=== PATIENT | female | born 1940 | race Caucasian/White ===

== ENCOUNTER 2017-03-31 15:47 | Observation (INO) | payer MEDICARE ==
[~2017-03-31] VITALS: Ht 165.1 cm; Wt 75.0 kg
[~2017-03-31 15:47] MED LIST: DEXI60CA3 PO; FISH100020 PO; LOVA20TA PO; OSTETAB PO; OXYB5TAB PO; PROB1TAB PO; TAB-TAB PO; VITA10002 PO; VITA100T55 PO; VITA400C36 PO
[2017-03-31 15:49] VITALS: BP 163/88; PULSE 122; RESP 18; TEMP 98.2; O2SAT 95
--- NOTE | 2017-03-31 15:55 | PD ---
Physical Exam Date Seen by Provider: Mar 31, 2017 Time Seen by Provider: 15:53 Narrative 76 YOWF C/O A.FIB. FEELING SOB, DIAPHORESIS, AND WEAKNESS VS REVIEWED WAITING FOR BED PLACEMENT Data Data Last Documented VS Vital Signs Date Time Temp Pulse Resp B/P Pulse Ox O2 Delivery O2 Flow Rate FiO2 03/31/17 15:49 98.2 122 18 163/88 95 MDM Supervised Visit with DUTCH: Ivan Marquez Mar 31, 2017 15:55
--- NOTE | 2017-03-31 16:23 | PD ---
HPI Chief Complaint: Cardiac Complaint Time Seen by Provider: 16:20 Travel History International Travel<30 days: No Contact w/Intl Traveler<30days: No Traveled to known affect area: No History of Present Illness HPI Patient drove to the emergency department from her primary care doctor's office after refusing ambulance transport for new onset A. fib. Patient's states that when she awoke she felt weak and a little short of breath. Patient reports being a little diaphoretic and saw her primary care doctor today was found to be in A. fib and sent to the emergency department. Patient states she's had some similar happen to her in the past where she felt weak and had a near- syncopal episode, but was never evaluated. Patient denies any cardiac history or being on any blood thinners. Patient denies any chest pain with this, nausea , vomiting, palpitations, back pain, headache, numbness or tingling anywhere, nausea, or vomiting. PFSH Past Medical History Cancer: No Cardiovascular Problems: No Diabetes: No Endocrine: No Genitourinary: Yes (FREQUENT URINATION) Hepatitis: No Hiatal Hernia: No Immune Disorder: No Musculoskeletal: No Neurologic: No Psychiatric: No Reproductive: No Respiratory: No Thyroid Disease: No ?: Not Past Surgical History Abdominal Surgery: No AICD: No Body Medical Devices: N/A Cardiac Surgery: No Ear Surgery: No Endocrine Surgery: No Eye Surgery: No Genitourinary Surgery: No Gynecologic Surgery: No Joint Replacement: No Oral Surgery: No Pacemaker: No Thoracic Surgery: No Social History Tobacco Use: No Substance Use: No Allergies-Medications (Allergen,Severity, Reaction): Coded Allergies: cashew nut (Unverified Allergy, Intermediate, RASH, 03/29/17) crab (Unverified Allergy, Intermediate, RASH, 03/29/17) egg (Unverified Allergy, Intermediate, RASH, 03/29/17) milk (Unverified Allergy, Intermediate, ?RASH. STILL DRINKS MILK, 03/29/17) shellfish derived (Unverified Allergy, Intermediate, RASH, 03/29/17) Reported Meds & Prescriptions Reported Meds & Active Scripts Active Reported Probiotic (Lactobacillus Combo No.10) 1 Each Capsule Ditropan (Oxybutynin Chloride) 5 Mg Tab 5 Mg PO Q8HR Fish Oil ([place]-3 Fatty Acids) 1,000 Mg Cap Folivane-Plus (Mult-Vit/Iron-Folic Acid) 125-1 mg Cap Osteo Bi-Flex Regular Strength (Glucosamine-Chondroitin) 250-200 Tab Lovastatin 20 Mg Tab 20 Mg PO DAILY Dexilant (Dexlansoprazole) 60 Mg Cap. B-12 (Cyanocobalamin) 1,000 Mcg Subl 1,000 Mcg SL DAILY Review of Systems Except as stated in HPI: all other systems reviewed are Neg Physical Exam Narrative GENERAL: Well-developed, overly nourished, in no acute distress, and non-ill appearing. SKIN: Focused skin assessment warm and dry. HEAD: Atraumatic. Normocephalic. EYES: Pupils equal and round. EOMI. No scleral icterus. No injection or drainage. ENT: No nasal bleeding or discharge. Mucous membranes pink and moist. NECK: Trachea midline. No JVD. Supple. No nuclear rigidity. CARDIOVASCULAR: Irregular rate and rhythm. No murmur appreciated. RESPIRATORY: No accessory muscle use. No respiratory distress. Decreased breath sounds throughout. Breath sounds equal bilaterally. GASTROINTESTINAL: Abdomen soft, non-tender, nondistended, and no guarding. Hepatic and splenic margins not palpable. Normal bowel sounds 4. No pulsatile mass. MUSCULOSKELETAL: No obvious deformities. No clubbing. No cyanosis. No edema. Full range of motion. NEUROLOGICAL: Awake and alert. No obvious cranial nerve deficits. Motor grossly within normal limits. Normal speech. PSYCHIATRIC: Appropriate mood and affect; insight and judgment normal. Data Data Last Documented VS Vital Signs Date Time Temp Pulse Resp B/P Pulse Ox O2 Delivery O2 Flow Rate FiO2 03/31/17 16:27 95 Room Air 03/31/17 15:49 98.2 122 18 163/88 Orders Electrocardiogram (03/31/17 15:56) Basic Metabolic Panel (Bmp) (03/31/17 16:18) Ckmb (Isoenzyme) Profile (03/31/17 16:18) Complete Blood Count With Diff (03/31/17 16:18) Magnesium (Mg) (03/31/17 16:18) Prothrombin Time / Inr (Pt) (03/31/17 16:18) Act Partial Throm Time (Ptt) (03/31/17 16:18) Troponin I (03/31/17 16:18) Chest, Single Ap (03/31/17 16:18) Ecg Monitoring (03/31/17 16:18) Bilateral Bp Monitoring (03/31/17 16:18) Iv Access Insert/Monitor (03/31/17 16:18) Oximetry (03/31/17 16:18) Oxygen Administration (03/31/17 16:18) Aspirin Chew (Aspirin Chew) (03/31/17 16:30) Sodium Chloride 0.9% Flush (Ns Flush) (03/31/17 16:30) Diltiazem Inj (Cardizem Inj) (03/31/17 16:30) Diltiazem Inj (Cardizem Inj) (03/31/17 16:30) Diltiazem Inj (Cardizem Inj) (03/31/17 17:45) Labs Laboratory Tests Test 03/31/17 16:30 White Blood Count 7.0 TH/MM3 Red Blood Count 4.77 MIL/MM3 Hemoglobin 14.9 GM/DL Hematocrit 44.3 % Mean Corpuscular Volume 92.8 FL Mean Corpuscular Hemoglobin 31.3 PG Mean Corpuscular Hemoglobin 33.7 % Concent Red Cell Distribution Width 14.9 % Platelet Count 326 TH/MM3 Mean Platelet Volume 7.6 FL Neutrophils (%) (Auto) 65.5 % Lymphocytes (%) (Auto) 13.4 % Monocytes (%) (Auto) 11.0 % Eosinophils (%) (Auto) 9.4 % Basophils (%) (Auto) 0.7 % Neutrophils # (Auto) 4.6 TH/MM3 Lymphocytes # (Auto) 0.9 TH/MM3 Monocytes # (Auto) 0.8 TH/MM3 Eosinophils # (Auto) 0.7 TH/MM3 Basophils # (Auto) 0.0 TH/MM3 CBC Comment DIFF FINAL Differential Comment Prothrombin Time 11.7 SEC Prothromb Time International 1.1 RATIO Ratio Activated Partial 29.0 SEC Thromboplast Time Sodium Level 141 MEQ/L Potassium Level 4.1 MEQ/L Chloride Level 106 MEQ/L Carbon Dioxide Level 26.3 MEQ/L Anion Gap 9 MEQ/L Blood Urea Nitrogen 25 MG/DL Creatinine 1.19 MG/DL Estimat Glomerular Filtration 44 ML/MIN Rate Random Glucose 140 MG/DL Calcium Level 9.7 MG/DL Magnesium Level 2.3 MG/DL Total Creatine Kinase 74 U/L Troponin I LESS THAN 0.02 NG/ML MDM Medical Decision Making Medical Screen Exam Complete: Yes Emergency Medical Condition: Yes Interpretation(s) EKG reviewed by Dr. Moore shows atrial fibrillation with RVR. Ventricular rate of 142. No STEMI. Chest x-ray read by radiology shows: 1. Masslike opacity projected over the right upper lobe which could represent a mass or possible infiltrate. This could be further evaluated with CT. 2. Left lower lobe opacity of concern for pneumonia. Differential Diagnosis A. fib, acute coronary syndrome, pneumonia, electrolyte abnormality, other Narrative Course Patient seen and examined. IV was established. Patient was placed on a media monitor. Initial laboratory and radiological studies were ordered. Patient was given aspirin. After EKG was performed patient was given Cardizem, which improved her heart rate. Discussed all findings and plan care of patient , who is agreeable for admission. Discussed lung opacities noted on chest x- ray with patient. All questions were answered. Discussed patient with Dr. Moore , who saw and evaluated the patient and is in agreement with plan of care and disposition. Discussed patient with hospitalist who is agreeable to admit the patient. Physician Communication Physician Communication [id number] Todd, who is agreeable to admit the patient and requests starting patient on heart healthy diet and out of bed with assist. Diagnosis Primary Impression: New onset a-fib Additional Impression: Opacity of lung on imaging study Admitting Information Admitting Physician Requests: Admit Condition: Stable Robe Antoine Mar 31, 2017 16:23
[2017-03-31] MEDS ORDERED: DILTIAZEM HCL 25 MG/5 ML VIAL IV PUSH ONE (16:30)
[2017-03-31] MEDS ORDERED: ASPIRIN 81 MG CHEW TAB PO ONE (16:30)
[2017-03-31] MEDS ORDERED: SODIUM CHLORIDE 0.9% FLUSH 10 ML FLUSH IVF PRN (16:30)
[2017-03-31] MEDS ORDERED: DILTIAZEM INJ 125 MG in SODIUM CHLORIDE 0.9% INJ 100 ML IV SCH (16:30)
--- NOTE | 2017-03-31 16:52 | RADRPT ---
EXAM DATE/TIME: 03/31/2017 16:31 [facility] COMPARISON: No previous studies available for comparison. INDICATIONS : Chest pain MEDICAL HISTORY : A-fib SURGICAL HISTORY : None. ENCOUNTER: Initial ACUITY: 1 day PAIN SCORE: 08/24 LOCATION: chest FINDINGS: A single AP portable erect view of the chest was obtained and demonstrates a focal abnormal opacity p rojected over the right lung apex measuring up to approximately 2.5 x 1.9 cm. There is abnormal opaci ty in the left lung base with partial obscuration of the left hemidiaphragm. There is no effusion. Th e heart size is within normal limits with no perihilar edema. The bony thorax is unremarkable. CONCLUSION: 1. Masslike opacity projected over the right upper lobe which could represent a mass or possible infi ltrate. His could be further evaluated with CT. 2. Left lower lobe opacity of concern for pneumonia. George Reyez MD on March 31, 2017 at 16:49 Board Certified Radiologist. This report was verified electronically.
--- NOTE | 2017-03-31 17:16 | PD ---
Data Data Last Documented VS Vital Signs Date Time Temp Pulse Resp B/P Pulse Ox O2 Delivery O2 Flow Rate FiO2 03/31/17 16:27 95 Room Air 03/31/17 15:49 98.2 122 18 163/88 Orders Electrocardiogram (03/31/17 15:56) Basic Metabolic Panel (Bmp) (03/31/17 16:18) Ckmb (Isoenzyme) Profile (03/31/17 16:18) Complete Blood Count With Diff (03/31/17 16:18) Magnesium (Mg) (03/31/17 16:18) Prothrombin Time / Inr (Pt) (03/31/17 16:18) Act Partial Throm Time (Ptt) (03/31/17 16:18) Troponin I (03/31/17 16:18) Chest, Single Ap (03/31/17 16:18) Ecg Monitoring (03/31/17 16:18) Bilateral Bp Monitoring (03/31/17 16:18) Iv Access Insert/Monitor (03/31/17 16:18) Oximetry (03/31/17 16:18) Oxygen Administration (03/31/17 16:18) Aspirin Chew (Aspirin Chew) (03/31/17 16:30) Sodium Chloride 0.9% Flush (Ns Flush) (03/31/17 16:30) Diltiazem Inj (Cardizem Inj) (03/31/17 16:30) Diltiazem Inj (Cardizem Inj) (03/31/17 16:30) Diltiazem Inj (Cardizem Inj) (03/31/17 17:45) Admit Order (Ed Use Only) (03/31/17 18:13) Diet Heart Healthy (03/31/17 Dinner) Activity Oob With Assistance (03/31/17 18:13) Labs Laboratory Tests Test 03/31/17 16:30 White Blood Count 7.0 TH/MM3 Red Blood Count 4.77 MIL/MM3 Hemoglobin 14.9 GM/DL Hematocrit 44.3 % Mean Corpuscular Volume 92.8 FL Mean Corpuscular Hemoglobin 31.3 PG Mean Corpuscular Hemoglobin 33.7 % Concent Red Cell Distribution Width 14.9 % Platelet Count 326 TH/MM3 Mean Platelet Volume 7.6 FL Neutrophils (%) (Auto) 65.5 % Lymphocytes (%) (Auto) 13.4 % Monocytes (%) (Auto) 11.0 % Eosinophils (%) (Auto) 9.4 % Basophils (%) (Auto) 0.7 % Neutrophils # (Auto) 4.6 TH/MM3 Lymphocytes # (Auto) 0.9 TH/MM3 Monocytes # (Auto) 0.8 TH/MM3 Eosinophils # (Auto) 0.7 TH/MM3 Basophils # (Auto) 0.0 TH/MM3 CBC Comment DIFF FINAL Differential Comment Prothrombin Time 11.7 SEC Prothromb Time International 1.1 RATIO Ratio Activated Partial 29.0 SEC Thromboplast Time Sodium Level 141 MEQ/L Potassium Level 4.1 MEQ/L Chloride Level 106 MEQ/L Carbon Dioxide Level 26.3 MEQ/L Anion Gap 9 MEQ/L Blood Urea Nitrogen 25 MG/DL Creatinine 1.19 MG/DL Estimat Glomerular Filtration 44 ML/MIN Rate Random Glucose 140 MG/DL Calcium Level 9.7 MG/DL Magnesium Level 2.3 MG/DL Total Creatine Kinase 74 U/L Troponin I LESS THAN 0.02 NG/ML MDM Supervised Visit with DUTCH: Yes Narrative Course I, Dr. Moore, have reviewed the advance practice practitioner's documentation and am in agreement, met with the patient face to face, made the diagnosis, and the medical decision making was done by me. *My assessment and Findings: Patient seen and examined by me in addition to Karan Antoine PA-C. Patient presents with new onset atrial fibrillation with RVR. She endorses several presyncopal type events in the past few weeks. She states that her blood pressures been low heart rate and high. She was controlled with multiple doses of Cardizem here in the emergency department. Hemodynamically stable. She will be admitted to the hospital further workup for new onset atrial fibrillation. Diagnosis Primary Impression: New onset a-fib Additional Impression: Opacity of lung on imaging study Admitting Information Admitting Physician Requests: Admit Condition: Stable Breezy Moore MD Mar 31, 2017 17:16
[2017-03-31 17:24] LABS: AUTOMATED NEUTROPHIL # 4.6 TH/MM3 (1.8-7.7); BASOPHIL % 0.7 % (0.0-2.0); EOSINOPHIL # 0.7 TH/MM3 (0-0.4); EOSINOPHIL % 9.4 % (0.0-4.0); HEMATOCRIT 44.3 % (35.0-46.0); HEMO FLAGS DIFF FINAL; LYMPH % 13.4 % (9.0-44.0); LYMPHOCYTE # 0.9 TH/MM3 (1.0-4.8); MEAN CELL VOLUME 92.8 FL (80.0-100.0); MEAN CORPUSCULAR HEMOGLOBIN 31.3 PG (27.0-34.0); MEAN CORPUSCULAR HGB CONC 33.7 % (32.0-36.0); NEUT % 65.5 % (16.0-70.0); PLATELET COUNT 326 TH/MM3 (150-450); RED BLOOD COUNT 4.77 MIL/MM3 (4.00-5.30); RED CELL DISTRIBUTION WIDTH 14.9 % (11.6-17.2)
[2017-03-31 17:34] LABS: INTERNATIONAL NORMALIZED RATIO 1.1 RATIO; PROTHROMBIN TIME - PATIENT 11.7 SEC (9.8-11.6)
[2017-03-31 17:45] LABS: ANION GAP 9 MEQ/L (5-15); BICARBONATE 26.3 MEQ/L (21.0-32.0); BLOOD UREA NITROGEN 25 MG/DL (7-18); CHLORIDE 106 MEQ/L (98-107); GLOMERULAR FILTRATION RATE 44 ML/MIN (>89); MAGNESIUM 2.3 MG/DL (1.5-2.5); POTASSIUM 4.1 MEQ/L (3.5-5.1); SODIUM (NA) 141 MEQ/L (136-145)
[2017-03-31] MEDS ORDERED: DILTIAZEM HCL 50 MG/10 ML VIAL IV PUSH ONE (17:45)
[2017-03-31] MEDS ORDERED: CYAN100025 SL (17:52)
[2017-03-31] MEDS ORDERED: OXYB5TAB10 PO (17:52)
[2017-03-31] MEDS ORDERED: LACT1CAP18 (17:52)
[2017-03-31] MEDS ORDERED: DEXI60CA2 (17:52)
[2017-03-31] MEDS ORDERED: OSTETAB3 (17:52)
[2017-03-31] MEDS ORDERED: FISH1000 (17:52)
[2017-03-31] MEDS ORDERED: LOVA20TA PO (17:52)
[2017-03-31] MEDS ORDERED: FOLICAP (17:52)
[2017-03-31 17:56] LABS: CREATINE KINASE 74 U/L (26-192)
[2017-03-31] MEDS ORDERED: LACTULOSE SYRUP 20 GM/30 ML CUP PO PRN (22:15)
[2017-03-31] MEDS ORDERED: ONDANSETRON HCL 4 MG/2 ML VIAL IVP PRN (22:15)
[2017-03-31] MEDS ORDERED: SODIUM CHLORIDE 0.9% FLUSH 10 ML FLUSH IV FLUSH PRN (22:15)
[2017-03-31] MEDS ORDERED: SENNOSIDES 8.6 MG TAB PO PRN (22:15)
[2017-03-31] MEDS ORDERED: ACETAMINOPHEN 325 MG TAB PO PRN (22:15)
[2017-03-31] MEDS ORDERED: NALOXONE HCL 0.4 MG/ML AMP IV PRN (22:15)
[2017-03-31] MEDS ORDERED: BISACODYL 10 MG SUPP RECTAL PRN (22:15)
[2017-03-31] MEDS ORDERED: MAGNESIUM HYDROXIDE SUSP 30 ML CUP PO PRN (22:15)
--- NOTE | 2017-03-31 22:24 | HHI.HP ---
HPI Service [facility] Hospitalists Primary Care Physician Fabián Zaidi MD Admission Diagnosis new-onset A. fib with RVR, lung opacity Chief Complaint: fatigue short of breath cough over several months Travel History International Travel<30 Days: No Contact w/Intl Traveler <30 Da: No Traveled to Known Affected Are: No History of Present Illness Patient drove to the emergency department from her primary care doctor's office after refusing ambulance transport for new onset A. fib. Patient's states that when she awoke she felt weak and a little short of breath. Patient reports being a little diaphoretic and saw her primary care doctor today was found to be in A. fib and sent to the emergency department. Patient states she's had some similar happen to her in the past where she felt weak and had a near- syncopal episode, but was never evaluated. Patient denies any cardiac history or being on any blood thinners. Patient denies any chest pain with this, nausea , vomiting, palpitations, back pain, headache, numbness or tingling anywhere, nausea, or vomiting. Patient has had cough over several months and has had work up with no clear answers and on chest xray shows infiltrates and one area appears mass like. Patient on cardiazem drip which is controlling rate will admit for further evaluation. Of note patient never smoked but was around second hand smoke. Review of Systems Constitutional: COMPLAINS OF: Fatigue Respiratory: COMPLAINS OF: Cough, Shortness of breath Past Family Social History Past Medical History peptic ulcer ,frequent urination, Past Surgical History none Reported Medications vitamins,[id number] not available at [facility] ditropan 5 tid Allergies: Coded Allergies: cashew nut (Unverified Allergy, Intermediate, RASH, 03/29/17) crab (Unverified Allergy, Intermediate, RASH, 03/29/17) egg (Unverified Allergy, Intermediate, RASH, 03/29/17) milk (Unverified Allergy, Intermediate, ?RASH. STILL DRINKS MILK, 03/29/17) shellfish derived (Unverified Allergy, Intermediate, RASH, 03/29/17) Social History NS,ND Physical Exam Vital Signs Vital Signs Date Time Temp Pulse Resp B/P Pulse Ox O2 Delivery O2 Flow Rate FiO2 03/31/17 16:27 95 Room Air 03/31/17 15:49 98.2 122 18 163/88 95 Physical Exam GENERAL: This is a well-nourished, well-developed patient, in no apparent distress. SKIN: No rashes, ecchymoses or lesions. Cool and dry. HEAD: Atraumatic. Normocephalic. No temporal or scalp tenderness. EYES: Pupils equal round and reactive. Extraocular motions intact. No scleral icterus. No injection or drainage. ENT: Nose without bleeding, purulent drainage or septal hematoma. Throat without erythema, tonsillar hypertrophy or exudate. Uvula midline. Airway patent. NECK: Trachea midline. No JVD or lymphadenopathy. Supple, nontender, no meningeal signs. CARDIOVASCULAR:IRREG Regular rate and rhythm without murmurs, gallops, or rubs. RESPIRATORY: Decrease breath sounds with bilateral rhonchi GASTROINTESTINAL: Abdomen soft, non-tender, nondistended. No hepato-splenomegaly , or palpable masses. No guarding. MUSCULOSKELETAL: Extremities without clubbing, cyanosis, or edema. No joint tenderness, effusion, or edema noted. No calf tenderness. Negative Homans sign bilaterally. NEUROLOGICAL: Awake and alert. Cranial nerves II through XII intact. Motor and sensory grossly within normal limits. Five out of 5 muscle strength in all muscle groups. Normal speech. Laboratory Laboratory Tests Test 03/31/17 16:30 White Blood Count 7.0 Red Blood Count 4.77 Hemoglobin 14.9 Hematocrit 44.3 Mean Corpuscular Volume 92.8 Mean Corpuscular Hemoglobin 31.3 Mean Corpuscular Hemoglobin 33.7 Concent Red Cell Distribution Width 14.9 Platelet Count 326 Mean Platelet Volume 7.6 Neutrophils (%) (Auto) 65.5 Lymphocytes (%) (Auto) 13.4 Monocytes (%) (Auto) 11.0 Eosinophils (%) (Auto) 9.4 Basophils (%) (Auto) 0.7 Neutrophils # (Auto) 4.6 Lymphocytes # (Auto) 0.9 Monocytes # (Auto) 0.8 Eosinophils # (Auto) 0.7 Basophils # (Auto) 0.0 CBC Comment DIFF FINAL Differential Comment Prothrombin Time 11.7 Prothromb Time International 1.1 Ratio Activated Partial 29.0 Thromboplast Time Sodium Level 141 Potassium Level 4.1 Chloride Level 106 Carbon Dioxide Level 26.3 Anion Gap 9 Blood Urea Nitrogen 25 Creatinine 1.19 Estimat Glomerular Filtration 44 Rate Random Glucose 140 Calcium Level 9.7 Magnesium Level 2.3 Total Creatine Kinase 74 Troponin I LESS THAN 0.02 Result Diagram: 03/31/17 1630 03/31/17 1630 Imaging Last 24 hours Impressions Chest X-Ray 03/31/17 1618 Signed Impressions: Service Date/Time: March 16:31 - CONCLUSION: 1. Masslike opacity projected over the right upper lobe which could represent a mass or possible infiltrate. His could be further evaluated with CT. 2. Left lower lobe opacity of concern for pneumonia. George Reyez MD Course in er started on cardiazem drip Assessment and Plan Problem List: (1) New onset a-fib Status: Acute Plan: continue cardiazem drip cardiac consult 2decho (2) Pneumonia Status: Acute Plan: will start on rocephin and zithromax (3) Opacity of lung on imaging study Status: Acute Plan: will need CT thorax Assessment and Plan further plan pending CT thorax Code Status full Discussed Condition With patient Physician Certification 2 Midnight Certification Type: Admission for Inpatient Services Order for Inpatient Services The services are ordered in accordance with Medicare regulations or non- Medicare payer requirements, as applicable. In the case of services not specified as inpatient-only, they are appropriately provided as inpatient services in accordance with the 2-midnight benchmark. Estimated LOS (days): 2 2 days is the estimated time the patient will need to remain in the hospital, assuming treatment plan goals are met and no additional complications. Post-Hospital Plan: Home Ty Todd MD Mar 31, 2017 22:24
[2017-03-31 22:51] VITALS: BP 127/58; PULSE 59; RESP 14; O2SAT 94
[2017-03-31] MEDS ORDERED: cefTRIAXone INJ 1,000 MG in SODIUM CHLORIDE 0.9% INJ 100 ML IV SCH (23:00)
[2017-03-31] MEDS ORDERED: IOHEXOL 350 MG/ML 10 ML VIAL (for RAD DIAG) IVCONTRAST ONE (23:49)
[2017-04-01] MEDS ORDERED: AZITHROMYCIN INJ 500 MG in SODIUM CHLOR 0.9% 250 ML INJ 250 ML IV SCH ×2
--- NOTE | 2017-04-01 00:34 | RADRPT ---
EXAM DATE/TIME: 03/31/2017 23:49 [facility] COMPARISON: CHEST SINGLE AP, March 31, 2017, 16:31. INDICATIONS : Evaluate mass in right upper lobe. IV CONTRAST: 60 cc Omnipaque 350 (iohexol) IV RADIATION DOSE: 5.27 CTDIvol (mGy) MEDICAL HISTORY : None SURGICAL HISTORY : None. ENCOUNTER: Initial ACUITY: 1 day PAIN SCALE: 0/10 LOCATION: Right chest TECHNIQUE: Volumetric scanning of the chest was performed. Using automated exposure control and adjustment of t he mA and/or kV according to patient size, radiation dose was kept as low as reasonably achievable to obtain optimal diagnostic quality images. DICOM format image data is available electronically for review and comparison. Follow-up recommendations for detected pulmonary nodules are based at a minimum on nodule size and pa tient risk factors according to Fleischner Society Guidelines. FINDINGS: LUNGS: 5 mm pleural-based nodule laterally in the right upper lobe with a perifissural nonspecific nodule in the superior segment of the right lower lobe. Parenchymal consolidation just above the left hemidiap hragm in the left lung base. Minimal pleural parenchymal scarring or atelectasis medially in the righ t base. Questionable nodular density on plain film in the right upper lobe actually corresponds to as ymmetric hypertrophy of the first costochondral junction in the right upper chest. PLEURA: Mild subpleural scarring medially in the right base. MEDIASTINUM: Atherosclerotic calcification of the coronary arteries. Moderately large hiatal hernia. AXILLAE: Within normal limits. No lymphadenopathy. SKELETAL: Within normal limits for patient age. MISCELLANEOUS: The visualized upper abdominal organs demonstrate no acute abnormality. CONCLUSION: 1. Questionable mass lesion in the right upper lobe actually represents asymmetric hypertrophy of the first costochondral junction in the right upper chest. 2. Nonspecific pleural and perifissural sub-centimeter nodular densities in the right lung are probab ly postinflammatory. If the patient has a smoking history, I would recommend a followup plain film of the chest in 6 months to ensure stability. 3. Airspace process above the left hemidiaphragm is nonspecific and could represent atelectasis or ea rly infiltrate. 4. Moderately large hiatal hernia. Huber Perry MD on April 01, 2017 at 0:25 Board Certified Radiologist. This report was verified electronically.
[2017-04-01 01:20] VITALS: BP 135/74; PULSE 59; RESP 16; O2SAT 96
[2017-04-01 04:00] VITALS: BP 127/65; PULSE 67; RESP 14; O2SAT 94
[2017-04-01 06:00] VITALS: BP 125/83; PULSE 61; RESP 14; O2SAT 95
[2017-04-01] MEDS ORDERED: OXYBUTYNIN CHLORIDE 5 MG TAB PO SCH (06:00)
[2017-04-01 07:49] VITALS: BP 147/71; PULSE 62; RESP 15; O2SAT 93
--- NOTE | 2017-04-01 08:16 | PD.CONS ---
HPI Service cardiology Consult Requested By Dr. Todd Reason for Consult new onset afib Primary Care Physician Fabián Zaidi MD History of Present Illness 76 yo WF with no prior cardiac history admitted yesterday for new onset afib. She states she's had a persistent semi-productive cough x several months and woke up yesterday with weakness and SOB. She was evaluated by her PCP where ECG showed afib. ECG in ED showed afib with HR 149, CXR +left lobe mass felt to be PNA. She is currently rate controlled on Cardizem gtt and feeling better. No chest pain. (Hoda Olmos) Review of Systems Consitutional: COMPLAINS OF: Fatigue, DENIES: Fever, Chills, Weight gain, Weight loss Respiratory: COMPLAINS OF: See HPI, Cough, Shortness of breath, Wheezing, Sputum production, DENIES: Snoring Cardiovascular: COMPLAINS OF: See HPI, DENIES: Chest pain, Palpitations, Syncope, Tachycardia Gastrointestinal: DENIES: Nausea, Vomiting, Change in bowel habits, Reflux, Bloody stools, Melena (Hoda Olmos) Past Family Social History Allergies: Coded Allergies: cashew nut (Unverified Allergy, Intermediate, RASH, 03/29/17) crab (Unverified Allergy, Intermediate, RASH, 03/29/17) egg (Unverified Allergy, Intermediate, RASH, 03/29/17) milk (Unverified Allergy, Intermediate, ?RASH. STILL DRINKS MILK, 03/29/17) shellfish derived (Unverified Allergy, Intermediate, RASH, 03/29/17) Past Medical History peptic ulcer ,frequent urination, Past Surgical History none Reported Medications Reported Meds & Active Scripts Active Reported Ditropan (Oxybutynin Chloride) 5 Mg Tab 5 Mg PO Q8HR Fish Oil ([place]-3 Fatty Acids) 1,000 Mg Cap Folivane-Plus (Mult-Vit/Iron-Folic Acid) 125-1 mg Cap Osteo Bi-Flex Regular Strength (Glucosamine-Chondroitin) 250-200 Tab Lovastatin 20 Mg Tab 20 Mg PO DAILY Dexilant (Dexlansoprazole) 60 Mg Cap. B-12 (Cyanocobalamin) 1,000 Mcg Subl 1,000 Mcg SL DAILY Active Ordered Medications Current Medications Medications (Trade) Dose Ordered Sig/Angela Route Start Time Stop Time Status Last Admin Diltiazem HCl 125 mg/Sodium Chloride 125 ml @ 0 mls/hr TITRATE IV 03/31/17 16:30 03/31/17 17:53 Ceftriaxone Sodium 1000 mg/ Sodium Chloride 100 ml @ 200 mls/hr Q24H IV 03/31/17 23:00 04/01/17 00:28 (Zithromax Inj/ NS 250 ml Inj) 250 ml @ 250 mls/hr Q24H IV 04/01/17 00:00 04/01/17 01:20 (Pravachol) 20 mg DAILY PO 04/01/17 09:00 (Ditropan) 5 mg Q8HR PO 04/01/17 06:00 Patient Own Medication PT OWN MED: Cyanocobalamin (B-12) 1,... DAILY SL 04/01/17 09:00 Future Hold (NS Flush) 2 ml UNSCH PRN IV FLUSH 03/31/17 22:15 (NS Flush) 2 ml BID IV FLUSH 04/01/17 09:00 (Tylenol) 650 mg Q4H PRN PO 03/31/17 22:15 (Zofran Inj) 4 mg Q6H PRN IVP 03/31/17 22:15 (Narcan Inj) 0.4 mg UNSCH PRN IV 03/31/17 22:15 (Uyen-Colace) 1 tab BID PO 04/01/17 09:00 (Milk Of Magnesia Liq) 30 ml Q12H PRN PO 03/31/17 22:15 (Senokot) 17.2 mg Q12H PRN PO 03/31/17 22:15 (Dulcolax Supp) 10 mg DAILY PRN RECTAL 03/31/17 22:15 (Lactulose Liq) 30 ml DAILY PRN PO 03/31/17 22:15 (Aspirin) 325 mg DAILY PO 04/01/17 09:00 Family History non-contributory Social History denies tobacco, etoh or illicit drugs (Hoda Olmos) Physical Exam Vital Signs Vital Signs Date Time Temp Pulse Resp B/P Pulse Ox O2 Delivery O2 Flow Rate FiO2 04/01/17 07:49 62 15 147/71 93 Room Air 04/01/17 06:00 61 14 125/83 95 Room Air 04/01/17 04:00 67 14 127/65 94 04/01/17 01:20 59 16 135/74 96 Room Air 03/31/17 22:51 59 14 127/58 94 Room Air 03/31/17 16:27 95 Room Air 03/31/17 15:49 98.2 122 18 163/88 95 Physical Exam HEAD: Atraumatic. Normocephalic. EYES: Pupils equal and round. No scleral icterus. No injection or drainage. ENT: No nasal bleeding or discharge. Mucous membranes pink and moist. NECK: Trachea midline. No JVD. CARDIOVASCULAR: Regular rate and irregularly irregular rhythm RESPIRATORY: No accessory muscle use. bilateral wheeze and rhonchi GASTROINTESTINAL: Abdomen soft, non-tender, nondistended. Hepatic and splenic margins not palpable. MUSCULOSKELETAL: Extremities without clubbing, cyanosis, or edema. No obvious deformities. NEUROLOGICAL: Awake and alert. No obvious cranial nerve deficits. Normal speech. PSYCHIATRIC: Appropriate mood and affect; insight and judgment normal. Laboratory Laboratory Tests Test 03/31/17 16:30 White Blood Count 7.0 Red Blood Count 4.77 Hemoglobin 14.9 Hematocrit 44.3 Mean Corpuscular Volume 92.8 Mean Corpuscular Hemoglobin 31.3 Mean Corpuscular Hemoglobin 33.7 Concent Red Cell Distribution Width 14.9 Platelet Count 326 Mean Platelet Volume 7.6 Neutrophils (%) (Auto) 65.5 Lymphocytes (%) (Auto) 13.4 Monocytes (%) (Auto) 11.0 Eosinophils (%) (Auto) 9.4 Basophils (%) (Auto) 0.7 Neutrophils # (Auto) 4.6 Lymphocytes # (Auto) 0.9 Monocytes # (Auto) 0.8 Eosinophils # (Auto) 0.7 Basophils # (Auto) 0.0 CBC Comment DIFF FINAL Differential Comment Prothrombin Time 11.7 Prothromb Time International 1.1 Ratio Activated Partial 29.0 Thromboplast Time Sodium Level 141 Potassium Level 4.1 Chloride Level 106 Carbon Dioxide Level 26.3 Anion Gap 9 Blood Urea Nitrogen 25 Creatinine 1.19 Estimat Glomerular Filtration 44 Rate Random Glucose 140 Calcium Level 9.7 Magnesium Level 2.3 Total Creatine Kinase 74 Troponin I LESS THAN 0.02 (Hoda Olmos) Result Diagram: 03/31/17 1630 03/31/17 1630 Imaging Last 24 hours Impressions Chest X-Ray 03/31/17 7828 Signed Impressions: Service Date/Time: March 16:31 - CONCLUSION: 1. Masslike opacity projected over the right upper lobe which could represent a mass or possible infiltrate. His could be further evaluated with CT. 2. Left lower lobe opacity of concern for pneumonia. George Reyez MD (Hoda Olmos) Assessment and Plan Problem List: (1) New onset a-fib Assessment and Plan 76 yo WF with no prior cardiac history presents with new onset afib, found to have +PNA. afib- currently rate controlled. Will stop cardizem gtt as she's converted to NSR and HR in the 50's. CHADS-VASC= 3, initiate anticoagulation. echo and stress testing can be done outpatient. follow up with [facility] cardiology next week (Hoda Olmos) Assessment and Plan spontaneously converted. likely induced by URI now bradycardiac. no BB or CCB. anticoagulation for now. outpatient echo and SPECT if no recurrence, may consider outpatient event monitor and then discontinuation of anticoagulation if lone afib induced by infection ok for dc today (Jonah Davis MD) Hoda Olmos Apr 01, 2017 08:15 Jonah Davis MD Apr 01, 2017 08:27
[2017-04-01] MEDS ORDERED: ASPIRIN 325 MG TAB PO SCH (09:00)
[2017-04-01] MEDS ORDERED: DOCUSATE SODIUM 50 MG/SENNA 8.6 MG TAB PO SCH (09:00)
[2017-04-01] MEDS ORDERED: CYANOCOBALAMIN 1000 MCG SL SCH (09:00)
[2017-04-01] MEDS ORDERED: PRAVASTATIN SOD 20 MG TAB PO SCH (09:00)
[2017-04-01] MEDS ORDERED: SODIUM CHLORIDE 0.9% FLUSH 10 ML FLUSH IV FLUSH SCH (09:00)
[2017-04-01] MEDS ORDERED: NON-FORMULARY DRUG (Cyanocobalamin (B-12) 1,000 MCG) SL SCH (09:00)
[2017-04-01] MEDS ORDERED: ASPIRIN 81 MG CHEW TAB PO SCH (09:00)
[2017-04-01] MEDS ORDERED: DABIGATRAN ETEXILATE 150 MG CAP PO SCH (09:00)
[2017-04-01 10:00] VITALS: BP 101/66; PULSE 62; RESP 15; O2SAT 93
--- NOTE | 2017-04-01 10:26 | HHI.PR ---
Subjective Remarks No new complaints. No cp, no sob, no cough. Pt is eager for discharge. Objective Vitals Vital Signs Date Time Temp Pulse Resp B/P Pulse Ox O2 Delivery O2 Flow Rate FiO2 04/01/17 07:49 62 15 147/71 93 Room Air 04/01/17 06:00 61 14 125/83 95 Room Air 04/01/17 04:00 67 14 127/65 94 04/01/17 01:20 59 16 135/74 96 Room Air 03/31/17 22:51 59 14 127/58 94 Room Air 03/31/17 16:27 95 Room Air 03/31/17 15:49 98.2 122 18 163/88 95 Result Diagram: 03/31/17 1630 03/31/17 1630 Other Results Laboratory Tests Test 03/31/17 16:30 White Blood Count 7.0 TH/MM3 Red Blood Count 4.77 MIL/MM3 Hemoglobin 14.9 GM/DL Hematocrit 44.3 % Mean Corpuscular Volume 92.8 FL Mean Corpuscular Hemoglobin 31.3 PG Mean Corpuscular Hemoglobin 33.7 % Concent Red Cell Distribution Width 14.9 % Platelet Count 326 TH/MM3 Mean Platelet Volume 7.6 FL Neutrophils (%) (Auto) 65.5 % Lymphocytes (%) (Auto) 13.4 % Monocytes (%) (Auto) 11.0 % Eosinophils (%) (Auto) 9.4 % Basophils (%) (Auto) 0.7 % Neutrophils # (Auto) 4.6 TH/MM3 Lymphocytes # (Auto) 0.9 TH/MM3 Monocytes # (Auto) 0.8 TH/MM3 Eosinophils # (Auto) 0.7 TH/MM3 Basophils # (Auto) 0.0 TH/MM3 CBC Comment DIFF FINAL Differential Comment Prothrombin Time 11.7 SEC Prothromb Time International 1.1 RATIO Ratio Activated Partial 29.0 SEC Thromboplast Time Sodium Level 141 MEQ/L Potassium Level 4.1 MEQ/L Chloride Level 106 MEQ/L Carbon Dioxide Level 26.3 MEQ/L Anion Gap 9 MEQ/L Blood Urea Nitrogen 25 MG/DL Creatinine 1.19 MG/DL Estimat Glomerular Filtration 44 ML/MIN Rate Random Glucose 140 MG/DL Calcium Level 9.7 MG/DL Magnesium Level 2.3 MG/DL Total Creatine Kinase 74 U/L Troponin I LESS THAN 0.02 NG/ML Imaging Last Impressions Chest X-Ray 03/31/17 1618 Signed Impressions: Service Date/Time: March 16:31 - CONCLUSION: 1. Masslike opacity projected over the right upper lobe which could represent a mass or possible infiltrate. His could be further evaluated with CT. 2. Left lower lobe opacity of concern for pneumonia. George Reyez MD Chest CT 03/31/17 0000 Signed Impressions: Service Date/Time: March 23:49 - CONCLUSION: 1. Questionable mass lesion in the right upper lobe actually represents asymmetric hypertrophy of the first costochondral junction in the right upper chest. 2. Nonspecific pleural and perifissural sub-centimeter nodular densities in the right lung are probably postinflammatory. If the patient has a smoking history , I would recommend a followup plain film of the chest in 6 months to ensure stability. 3. Airspace process above the left hemidiaphragm is nonspecific and could represent atelectasis or early infiltrate. 4. Moderately large hiatal hernia. Huber Perry MD A/P Problem List: (1) New onset a-fib Status: Acute Plan: - Pt is a 76 y/o female who was sent from her PCP office for new onset A. fib. which was felt to possibly be brought on by pts recent URI - Pt was noted to be in A. fib RVR in the ED and was started on Cardizem drip - Pt returned to NSR but then became bradycardic. - Cardizem was stopped. - Cardiology was consulted and recommended against BB and CCB at this time due to bradycardia. - Pt was started on ASA and Pradaxa 150mg po BID - 2D echo is ordered, can be done outpt - f/u with Dr. Davis in 1 week - see discharge orders (2) Pneumonia Status: Acute Plan: - Pt had reported cough and URI symptoms for the last few weeks. - CXR in the ED (03/31) --> Masslike opacity projected over the right upper lobe which could represent a mass or possible infiltrate. His could be further evaluated with CT. Left lower lobe opacity of concern for pneumonia. - Pt was started on Rocephin and Zithromax - Chest CT (03/31) --> Questionable mass lesion in the right upper lobe actually represents asymmetric hypertrophy of the first costochondral junction in the right upper chest. Nonspecific pleural and perifissural sub-centimeter nodular densities in the right lung are probably postinflammatory. If the patient has a smoking history, I would recommend a followup plain film of the chest in 6 months to ensure stability. Airspace process above the left hemidiaphragm is nonspecific and could represent atelectasis or early infiltrate. Moderately large hiatal hernia. - Pt has NO leukocytosis and no fever - Diagnosis more consistent with URI not Pneumonia - Pt will need repeat CXR in 6 months (3) Opacity of lung on imaging study Status: Acute Plan: - See above. Assessment and Plan Patient examined. Assessment and plan formulated with Terra Ferreira PA-C. I agree with the above. Terra Ferreira Apr 01, 2017 10:25 Des Esteves DO Apr 01, 2017 11:56
[2017-04-01] MEDS ORDERED: PRAD150C PO (11:45)
[2017-04-01] MEDS ORDERED: ASPI81CH25 PO (11:45)
[2017-04-01] MEDS ORDERED: AZIT250T3 PO (11:55)
[2017-04-01 12:00] VITALS: BP 134/61; PULSE 66; RESP 15; O2SAT 94
[2017-04-01] MEDS ORDERED: FLUTI110I INH (12:15)
--- NOTE | 2017-04-01 14:14 | EKG ---
Date Performed: 03/31/2017 Time Performed: 16:03:03 PTAGE: 76 years EKG: ATRIAL FIBRILLATION WITH RAPID VENTRICULAR RESPONSE MODERATE INTRAVENTRICULAR CONDUCTION DE LAY NONSPECIFIC T-WAVE ABNORMALITY ABNORMAL RHYTHM ECG Compared to PREVIOUS TRACING atrial fibrillation with rapid response is now present PREVIOUS TRACING : 12/05/2015 08.51 DOCTOR: Jose Castillo Interpretating Date/Time 04/01/2017 14:13:54
== END 2017-04-01 13:10 | disposition home or self-care (01) ==
LOC: NEPC 15:47 → INTOOBSV 18:17 → NEDA 18:17 → NEDH 04-01 00:26
PROVIDERS: ADMIT Hospitalist; ATTEND Hospitalist
DX: I48.91 Unspecified atrial fibrillation (principal); J18.9 Pneumonia, unspecified organism
CPT/HCPCS: 71010; 71260; 80048; 82550; 83735; 84484; 85025; 85610; 85730; 87070; 87205; 93005; 96374; 96376; 99285; G0378; J0456; J0696; J7050; Q9967

== ENCOUNTER 2018-02-25 02:26 | Inpatient (IN) ==
[2018-02-25] MEDS ORDERED: Morphine Inj 4 MG/ML Vial IV.PUSH ONE ×2 (02:35→05:12)
[2018-02-25 03:07] LABS: Baso # (Auto) 0.1 th/mm3 (0.0-0.2); Baso % (Auto) 1.1 % (0.0-2.0); Eos # (Auto) 0.7 th/mm3 (0.0-0.4); Eos % (Auto) 10.9 % (0.0-4.0); Hematocrit 26.6 % (35.0-46.0); Hemoglobin 9.2 gm/dL (11.6-15.3); Lymph # (Auto) 1.5 th/mm3 (1.0-4.8); Lymph % (Auto) 24.3 % (9.0-44.0); Mean Corpuscular HGB Conc 34.5 % (32.0-36.0); Mean Corpuscular Hemoglobin 29.1 pg (27.0-34.0); Mean Corpuscular Volume 84.3 fL (80.0-100.0); Mean Platelet Volume 7.2 fL (7.0-11.0); Mono # (Auto) 0.7 th/mm3 (0.0-0.9); Mono % (Auto) 11.5 % (0.0-8.0); Neut # (Auto) 3.2 th/mm3 (1.8-7.7); Neut % (Auto) 52.2 % (16.0-70.0); Platelet Count 428 th/mm3 (150-450); Red Blood Count 3.15 mil/mm3 (4.00-5.30); Red Cell Distribution Width 16.7 % (11.6-17.2); White Blood Count 6.1 th/mm3 (4.0-11.0)
[2018-02-25 03:17] LABS: Activated Partial Thrombo Time 32.8 sec (24.3-30.1); INR 1.2 Ratio
[2018-02-25 03:37] LABS: Alanine Aminotransferase 17 U/L (10-53); Albumin 3.2 g/dL (3.4-5.0); Anion Gap 11 meq/L (5-15); Aspartate Aminotransferase 18 U/L (15-37); Blood Urea Nitrogen 19 mg/dL (7-18); Calcium 9.5 mg/dL (8.5-10.1); Carbon Dioxide 22.3 meq/L (21.0-32.0); Chloride 110 meq/L (98-107); Glomerular Filtration Rate 58 mL/min (>89); Glucose,Random 103 mg/dL (74-106); Magnesium 2.4 mg/dL (1.5-2.5); Potassium 3.8 meq/L (3.5-5.1); Sodium 143 meq/L (136-145)
[2018-02-25 03:39] LABS: Alkaline Phosphatase 119 U/L (45-117); Total Protein 6.7 g/dL (6.4-8.2)
--- NOTE | 2018-02-25 04:03 | XR ---
EXAM DATE: 02/25/2018 3:27 AM EDT AGE/SEX: 77 years / Female INDICATIONS: Shortness of breath. CLINICAL DATA: This is the patient's initial encounter. Patient reports that signs and symptoms have been present for 1 day and indicates a pain score of 10/10. MEDICAL/SURGICAL HISTORY: . AFIB None. [place] [facility] [place] . FINDINGS: A single AP view of the chest demonstrates the lungs to be symmetrically aerated without evidence of mass, infiltrate or effusion. The cardiomediastinal contours are unremarkable. Osseous structures a re intact. CONCLUSION: No acute disease Electronically signed by: Kirby Dodge MD 02/25/2018 4:01 AM EDT
--- NOTE | 2018-02-25 04:11 | XR ---
EXAM DATE: 02/25/2018 3:23 AM EDT AGE/SEX: 77 years / Female INDICATIONS: Left hip pain post fall. CLINICAL DATA: This is the patient's initial encounter. Patient reports that signs and symptoms have been present for 1 day and indicates a pain score of 10/10. MEDICAL/SURGICAL HISTORY: . AFIB None. COMPARISON: No prior exams available for comparison. FINDINGS: There is a mildly displaced, angulated and impacted intertrochanteric fracture of the left hip. Left femoral head is grossly intact in situated in the acetabulum. There is moderate degenerative change i n the contralateral right hip. No displaced pelvic fractures appreciated. CONCLUSION: Left hip fracture Electronically signed by: Kirby Dodge MD 02/25/2018 4:09 AM EDT
--- NOTE | 2018-02-25 04:12 | XR ---
EXAM DATE: 02/25/2018 3:24 AM EDT AGE/SEX: 77 years / Female INDICATIONS: Left proximal femur pain post fall. CLINICAL DATA: This is the patient's initial encounter. Patient reports that signs and symptoms have been present for 1 day and indicates a pain score of 10/10. MEDICAL/SURGICAL HISTORY: . AFIB None. COMPARISON: [facility] [place]. . FINDINGS: There is a mildly displaced, angulated and impacted intertrochanteric fracture of the left hip. The distal left femur is intact. There is moderate degenerative arthritic change at the knee. CONCLUSION: Left hip fracture Electronically signed by: Kirby Dodge MD 02/25/2018 4:10 AM EDT
--- NOTE | 2018-02-25 05:01 | ED ---
HPI General Stated Complaint: Fall, EVAC Time Seen by Provider: 02/25/18 02:32 Source: patient and EMS History of Present Illness HPI Narrative: Is a 77-year-old woman who presents to the emergency department after a fall. States she was sitting on a stool when she fell off and landed on her hip. She has pain in her left hip. She was able to crawl to the door but has pain with any movement. EMS reports shortening and rotation. She is a history of A. fib on Pradaxa. Denies hitting her head at all. Little bit of soreness in her left shoulder. She also has a history of GERD. No other complaints. Related Data Allergies Allergy/AdvReac Type Severity Reaction Status Date / Time cashew nut Allergy Intermediate RASH Verified 02/25/18 02:40 crab Allergy Intermediate RASH Verified 02/25/18 02:40 egg Allergy Intermediate RASH Verified 02/25/18 02:40 milk Allergy Intermediate ?RASH. Verified 02/25/18 02:40 STILL DRINKS MILK shellfish derived Allergy Intermediate RASH Verified 02/25/18 02:40 Review of Systems ROS Unobtainable All other systems reviewed negative except as stated in HPI PMFSH History History Provided By: Patient Social History Social History Recent Travel in [facility] within the Last 8 Weeks: No Recent Out of Country Travel within the Last 8 Weeks: No Exam Narrative Exam Narrative: GENERAL: Well-appearing 77-year-old woman, no acute distress. SKIN: Focused skin assessment warm/dry. HEAD: Atraumatic. Normocephalic. EYES: Pupils equal and round. No scleral icterus. No injection or drainage. ENT: No nasal bleeding or discharge. Mucous membranes pink and moist. NECK: Trachea midline. No JVD. CARDIOVASCULAR: Regular rate and rhythm. No murmur appreciated. RESPIRATORY: No accessory muscle use. Clear to auscultation. Breath sounds equal bilaterally. GASTROINTESTINAL: Abdomen soft, non-tender, nondistended. Hepatic and splenic margins not palpable. MUSCULOSKELETAL: Left leg is rotated and shortened. Pain with any range of motion of the hip. Good perfusion distally. Knee ankle and foot are unremarkable. NEUROLOGICAL: Awake and alert. No obvious cranial nerve deficits. Motor grossly within normal limits. Normal speech. PSYCHIATRIC: Appropriate mood and affect; insight and judgment normal. Course Initial Documented Vital Signs Temperature 98 F 02/25/18 02:44 Pulse Rate 70 02/25/18 02:44 Blood Pressure 159/74 H 02/25/18 02:44 Pulse Oximetry 97 02/25/18 02:44 Last Documented Vital Signs Temperature 98 F 02/25/18 02:44 Pulse Rate 70 02/25/18 02:44 Blood Pressure 159/74 H 02/25/18 02:44 Pulse Oximetry 97 02/25/18 02:57 Medical Decision Making MDM Narrative Medical decision making narrative: 77-year-old woman with fall from her stool and apparent left hip fracture. She looks well. No other apparent injuries. Left shoulder is a little sore but she moves and ranges it fully. No evidence of fracture. She is on Pradaxa. Explicitly denies hitting her head. Will plan on admission, fracture repair. Lab Data Lab results reviewed: Yes I reviewed the patient's lab results. Result diagrams: 02/25/18 02:45 02/25/18 02:45 Lab Results 02/25/18 02/25/18 02/25/18 Range/Units 02:45 02:45 02:45 WBC 6.1 (4.0-11.0) th/mm3 RBC 3.15 L (4.00-5.30) mil/mm3 Hgb 9.2 L (11.6-15.3) gm/dL Hct 26.6 L (35.0-46.0) % MCV 84.3 (80.0-100.0) fL MCH 29.1 (27.0-34.0) pg MCHC 34.5 (32.0-36.0) % RDW 16.7 (11.6-17.2) % Plt Count 428 (150-450) th/mm3 MPV 7.2 (7.0-11.0) fL Neut % (Auto) 52.2 (16.0-70.0) % Lymph % (Auto) 24.3 (9.0-44.0) % [place] % (Auto) 11.5 H (0.0-8.0) % Eos % (Auto) 10.9 H (0.0-4.0) % Baso % (Auto) 1.1 (0.0-2.0) % Neut # (Auto) 3.2 (1.8-7.7) th/mm3 Lymph # (Auto) 1.5 (1.0-4.8) th/mm3 [place] # (Auto) 0.7 (0.0-0.9) th/mm3 Eos # (Auto) 0.7 H (0.0-0.4) th/mm3 Baso # (Auto) 0.1 (0.0-0.2) th/mm3 WBC Differential . Differential Comment Auto diff final PT 12.0 H (9.8-11.6) sec INR 1.2 Ratio APTT 32.8 H (24.3-30.1) sec Sodium 143 (136-145) meq/L Potassium 3.8 (3.5-5.1) meq/L Chloride 110 H (98-107) meq/L Carbon Dioxide 22.3 (21.0-32.0) meq/L Anion Gap 11 (5-15) meq/L BUN 19 H (7-18) mg/dL Creatinine 0.93 (0.50-1.00) mg/dL Estimated GFR 58 L (>89) mL/min Random Glucose 103 (74-106) mg/dL Calcium 9.5 (8.5-10.1) mg/dL Magnesium 2.4 (1.5-2.5) mg/dL Total Bilirubin 0.2 (0.2-1.0) mg/dL AST 18 (15-37) U/L ALT 17 (10-53) U/L Alkaline Phosphatase 119 H (45-117) U/L Total Protein 6.7 (6.4-8.2) g/dL Albumin 3.2 L (3.4-5.0) g/dL Imaging Data Radiologist's impression: Femur X-Ray 02/25/18 02:33 CONCLUSION: Left hip fracture Pelvis X-Ray 02/25/18 02:33 CONCLUSION: Left hip fracture Chest X-Ray 02/25/18 02:34 CONCLUSION: No acute disease Left hip fracture ECG Data EKG Prior to Arrival: No Attestation: I personally reviewed and interpreted this ECG as follows: Interpretation: Normal sinus rhythm at a rate of 71, leftward axis, normal intervals, no definite evidence of acute ischemia, some lateral T-wave flattening in the limb leads. Discharge Plan Discharge Disposition Patient Disposition: 30 Still Patient Physicians Team ED Provider: Jonah Lazaro Primary Care Provider: Fabián Maravilla Attending Provider: Edward Armando Status ED Status: Admitted Patient
[2018-02-25] MEDS ORDERED: Temazepam 15 MG Capsule PO PRN (07:52)
[2018-02-25] MEDS ORDERED: Bisacodyl 10 MG Supp RECTAL PRN ×2 (07:52→10:27)
[2018-02-25] MEDS ORDERED: Acetaminophen 325 MG Tablet PO PRN (07:52)
[2018-02-25] MEDS ORDERED: Morphine Inj 4 MG/ML Vial IV.PUSH PRN (07:56)
--- NOTE | 2018-02-25 08:17 | ECG ---
Date Performed: 02/25/2018 Time Performed: 02:46:38 PTAGE: 77 years EKG: Sinus rhythm WITH SINUS ARRHYTHMIA NONSPECIFIC T-WAVE ABNORMALITY BORDERLINE ECG NO PREVIOUS TRACING DOCTOR: Bernie Galaviz Interpretating Date/Time 02/25/2018 08:15:20
--- NOTE | 2018-02-25 08:30 | P.HPIM ---
History of Present Illness Primary Care Physician: Fabián Maravilla Chief Complaint: Left hip pain History of Present Illness: Ms. Vargas is a pleasant 77 y/o WF with atrial fibrillation on chronic anticoagulation with Pradaxa BID, GERD, and chronic back pain. Pt was brought to the [place] [facility] [place] with complaints of left leg and hip pain after she fell off her ottoman last night. She rpeorts that she was sitting on the ottoman when it tipped out from underneath her and she fell onto her left side. She had immediate pain in the left hip and thigh and was unable to stand. She lives alone but was able to crawl to the phone to call 9--1. In the ED pt was found to have a left hip fracture. Orthopedic surgery has been consulted. Pt last took her Pradaxa last night. 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 This includes certification that hospital inpatient services are reasonable and necessary and in the case of services not specified as inpatient-only under 42 CFR 419.22(n), that they are appropriately provided as inpatient services in accordance to with the 2-midnight benchmark under 43 CFR 412.3(e) Estimated Total Length of Stay (Days): 3 Plans for Post Hospital Care: Not yet determined Review of Systems Constitutional: Denies chills, Denies fatigue, Denies fever(s) Eyes: Denies blurry vision, Denies loss of vision Ears, Nose, Mouth, and Throat: Denies difficulty swallowing, Denies dizziness, Denies hearing loss Cardiovascular: Reports irregular heart rhythm, Denies chest pain, Denies generalized swelling, Denies lightheadedness, Denies shortness of breath Respiratory: Denies cough, Denies shortness of breath, Denies wheezing Gastrointestinal: Denies abdominal pain, Denies constipation, Denies heartburn, Denies loose stools, Denies nausea, Denies vomiting Genitourinary: Denies urinary incontinence, Denies urinary urgency Musculoskeletal: Reports joint pain Neurologic: Denies dizziness, Denies numbness, Denies tingling/numbness/burning sensations, Denies weakness Psychiatric: Denies anxiety, Denies depression [facility] - History History Provided By: Patient - Medical History Medical History: Medical History (Last Reviewed 03/02/18 @ 08:33 by Nilsa Powell) Atrial fibrillation GERD (gastroesophageal reflux disease) - Surgical History Surgical History: Surgical History (Last Reviewed 03/02/18 @ 08:33 by Nilsa Powell) No history of previous surgery - Tobacco History Second Hand Smoke Exposure: No Smoking Status: Never smoker - Alcohol History How Often Do You Have a Drink Containing Alcohol: Never - Travel History Recent Travel in the [place] Within the Last 8 Weeks: No Recent Travel Out of the Country Within the Last 8 Weeks: No - Immunization History Tetanus Immunization: Unsure Hx Influenza Vaccine This Season: Yes Medications and Allergies Allergies Allergy/AdvReac Type Severity Reaction Status Date / Time cashew nut Allergy Intermediate RASH Verified 02/25/18 02:40 crab Allergy Intermediate RASH Verified 02/25/18 02:40 shellfish derived Allergy Intermediate RASH Verified 02/25/18 02:40 Home Medications Medication Instructions Recorded Confirmed Type dabigatran etexilate [Pradaxa] 75 mg PO BID 02/25/18 02/25/18 History dexlansoprazole [Dexilant] 30 mg PO DAILY 02/25/18 02/25/18 History gabapentin 100 mg PO HS 02/26/18 02/26/18 History lovastatin 02/26/18 History oxybutynin chloride 5 mg PO TID 02/27/18 02/27/18 History Active Medications: Active Medications Acetaminophen (Tylenol) 650 mg PO Q4H PRN PRN Reason: Temp > 100.4 Hydrocodone Bitart/Acetaminophen ([place] 7.5/325) 1 tab PO Q4H PRN PRN Reason: pain 2-5 Al Hydroxide/Mg Hydroxide (Milk Of Magnesia Liq) 30 ml PO Q12H PRN PRN Reason: Mild Constipation Bisacodyl (Dulcolax Supp) 10 mg RECTAL DAILY PRN PRN Reason: SEVERE CONSITIPATION Sodium Chloride (Ns Inj) 1,000 mls @ 100 mls/hr IV.CONT .Q10H MARYBETH Morphine Sulfate (Morphine Inj) 4 mg IV.PUSH Q4H PRN PRN Reason: PAIN 6-10;IF UNABLE TO TAKE PO Ondansetron HCl (Zofran Inj) 4 mg IV.PUSH Q6H PRN PRN Reason: NAUSEA OR VOMITING Pantoprazole Sodium (Protonix Inj) 40 mg IV.PUSH Q24H MARYBETH Senna/Docusate Sodium (Uyen-Colace) 1 tab PO BID MARYBETH Sennosides (Senokot) 17.2 mg PO Q12H PRN PRN Reason: Moderate Constipation Sodium Chloride (Ns Flush) 2 ml IV.FLUSH UNSCH PRN PRN Reason: FLUSH AFTER USING IV ACCESS Temazepam (Restoril) 15 mg PO HS PRN PRN Reason: INSOMNIA Exam Vital signs: Vital Signs 02/25/18 02:44 02/25/18 02:57 02/25/18 05:53 Temperature 98 F Pulse Rate 70 64 Respiratory Rate 16 Blood Pressure 159/74 H 135/60 Pulse Oximetry 97 97 96 Intake & Output 02/24/18 02/25/18 02/25/18 18:59 06:59 18:59 Weight 81.647 kg Narrative: GENERAL: NAD, AAOx3 SKIN: Warm and dry. HEENT: Atraumatic. Normocephalic. Pupils equal and round. No scleral icterus. No injection or drainage. No nasal bleeding or discharge. Mucous membranes pink and moist. NECK: Trachea midline. No JVD. CARDIOVASCULAR: Irregular RESPIRATORY: No accessory muscle use. Clear to auscultation. Breath sounds equal bilaterally. GASTROINTESTINAL: Abdomen soft, non-tender, nondistended. Hepatic and splenic margins not palpable. MUSCULOSKELETAL: Left leg is rotated and shortened. Pain with any range of motion of the hip. Good perfusion distally. NEUROLOGICAL: Awake and alert. No obvious cranial nerve deficits. Motor grossly within normal limits. Five out of 5 muscle strength in the arms and legs. Normal speech. PSYCHIATRIC: Appropriate mood and affect; insight and judgment normal. Results - Labs CBC & Chem 7: 03/02/18 04:58 03/01/18 08:12 Labs: Short CBC 02/25/18 Range/Units 02:45 WBC 6.1 (4.0-11.0) th/mm3 Hgb 9.2 L (11.6-15.3) gm/dL Hct 26.6 L (35.0-46.0) % Plt Count 428 (150-450) th/mm3 BMP 02/25/18 02:45 Sodium 143 Potassium 3.8 Chloride 110 H Carbon Dioxide 22.3 BUN 19 H Creatinine 0.93 Calcium 9.5 Liver Function 02/25/18 Range/Units 02:45 Total Bilirubin 0.2 (0.2-1.0) mg/dL AST 18 (15-37) U/L ALT 17 (10-53) U/L Alkaline Phosphatase 119 H (45-117) U/L Albumin 3.2 L (3.4-5.0) g/dL - Imaging Impressions Femur X-Ray 02/25/18 02:33 CONCLUSION: Left hip fracture Pelvis X-Ray 02/25/18 02:33 CONCLUSION: Left hip fracture Chest X-Ray 02/25/18 02:34 CONCLUSION: No acute disease Caprini VTE Risk Assessment Caprini VTE Risk Assessment: Moderate/High Risk (score >= 2) Caprini Risk Assessment Model: Point Value = 1 Point Value = 2 Point Value = 3 Point Value = 5 Age 41-60 Minor surgery BMI > 25 kg/m2 Swollen legs Varicose veins or History of unexplained or recurrent spontaneous Oral contraceptives or hormone replacement Sepsis (< 1 month) Serious lung disease, including pneumonia (< 1 month) Abnormal pulmonary function Acute myocardial infarction Congestive heart failure (< 1 month) History of inflammatory bowel disease Medical patient at bed rest Age 61-74 Arthroscopic surgery Major open surgery (> 45 min) Laparoscopic surgery (> 45 min) Malignancy Confined to bed (> 72 hours) Immobilizing plaster cast Central venous access Age >= 75 History of VTE Family history of VTE Factor V Leiden Prothrombin [id number] Lupus anticoagulant Anticardiolipin antibodies Elevated serum homocysteine Heparin-induced thrombocytopenia Other congenital or acquired thrombophilia Stroke (< 1 month) Elective arthroplasty Hip, pelvis, or leg fracture Acute spinal cord injury (< 1 month) Prophylaxis Regimen: Total Risk Factor Score Risk Level Prophylaxis Regimen 0-1 Low Early ambulation 2 Moderate Order ONE of the following: *Sequential Compression Device (SCD) *Heparin 5000 units SQ BID 3-4 Higher Order ONE of the following medications: *Heparin 5000 units SQ TID *Enoxaparin/Lovenox 40 mg SQ daily (WT < 150 kg, CrCl > 30 mL/min) *Enoxaparin/Lovenox 30 mg SQ daily (WT < 150 kg, CrCl > 10-29 mL/min) *Enoxaparin/Lovenox 30 mg SQ BID (WT < 150 kg, CrCl > 30 mL/min) AND/OR *Sequential Compression Device (SCD) 5 or more Highest Order ONE of the following medications: *Heparin 5000 units SQ TID (Preferred with Epidurals) *Enoxaparin/Lovenox 40 mg SQ daily (WT < 150 kg, CrCl > 30 mL/min) *Enoxaparin/Lovenox 30 mg SQ daily (WT < 150 kg, CrCl > 10-29 mL/min) *Enoxaparin/Lovenox 30 mg SQ BID (WT < 150 kg, CrCl > 30 mL/min) AND *Sequential Compression Device (SCD) Assessment and Plan - Assessment (1) Hip fracture, left Code(s): S72.002A - Fracture of unspecified part of neck of left femur, initial encounter for closed fracture Status: Acute Plan: Left hip fracture - Pt is a 77 y/o with atrial fibrillation on chronic anticoagulation with Pradaxa and GERD - She was admitted to [facility] on [place]25/[place] after a mechanical fall at home and was found to have sustained a left hip fracture - Orthopedic Surgery is consulted - Pt planned to go to the OR later today - Pt is NPO - IVF - Pain control PRN - Pradaxa is on hold for now - Supportive care - IS - Pt will need PT post-op - She lives alone and will likely benefit from SNF placement for rehab at the end of this hospitalization GERD - PPI The exam, history, and the medical decision-making described in the above note were completed with the assistance of the mid-level provider. I reviewed and agree with the findings presented. I attest that I had a [id number] encounter with the patient on the same day, and personally performed and documented my assessment and findings in the medical record. hip fx. intertrochanteric nail today per ortho. pradaxa on hold. plan for snf (2) Atrial fibrillation Code(s): I48.91 - Unspecified atrial fibrillation Status: Acute (3) GERD (gastroesophageal reflux disease) Code(s): K21.9 - Gastro-esophageal reflux disease without esophagitis Status: Acute
[2018-02-25] MEDS ORDERED: Pantoprazole Inj 40 MG Vial IV.PUSH SCH (09:00)
[2018-02-25] MEDS ORDERED: Sod Chloride 0.9% Inj 1,000 ML IV.CONT SCH (09:00)
[2018-02-25] MEDS ORDERED: Senna/Docusate Sodium 8.6/50 MG Tablet PO SCH (09:00)
[2018-02-25] MEDS ORDERED: Zolpidem Tartrate 5 MG Tablet PO PRN (10:27)
[2018-02-25] MEDS ORDERED: Promethazine 25 MG Supp RECTAL PRN (10:27)
--- NOTE | 2018-02-25 10:52 | MB ---
cc: Vinicius Coreas MD DATE: 02/25/2018 REASON FOR CONSULTATION: Left hip fracture. HISTORY OF PRESENT ILLNESS: The patient is a 77-year-old female with history of atrial fibrillation on Pradaxa, gastric reflux, chronic back pain. She was brought to [facility] Emergency Room after a fall, landing onto her left hip. She lost her balance and tripped over the ottoman. She felt immediate onset of pain in the left hip and left thigh. She was unable to stand, bear weight or ambulate. She called 911 and was brought in by ambulance. Her pain is severe and constant, throbbing, aching. She had x-rays performed and was diagnosed with a left displaced intertrochanteric hip fracture. Orthopedic surgery was consulted for further evaluation and management of this injury and condition. PAST MEDICAL HISTORY: Positive for atrial fibrillation, gastric reflux, chronic back pain. PAST SURGICAL HISTORY: None. FAMILY HISTORY: Noncontributory and was reviewed. SOCIAL HISTORY: She denies alcohol, tobacco or drug use. She lives with her cats. REVIEW OF SYSTEMS: Negative for 10 systems other than HPI. PHYSICAL EXAMINATION: VITAL SIGNS: The patient's temperature is 98, pulse 70, respirations are 16, blood pressure 159/74. HEENT: Normocephalic, atraumatic. Pupils round. Extraocular muscles intact. NECK: Supple. LUNGS: Clear. HEART: Regular rate and rhythm. ABDOMEN: Soft, nontender. PSYCHIATRIC: Her mood is appropriate. EXTREMITIES: Left lower extremity is shortened and internally rotated. She has pain with any passive motion of the left hip. She can flex and extend her ankle and toes distally. LABORATORY STUDIES: Her white blood cell count 6.1, hemoglobin is 9.2, hematocrit is 26, platelets 428. BUN is 19, creatinine is 0.93, glucose 103. IMAGING STUDIES: X-ray of the left hip reveal a comminuted displaced left intertrochanteric hip fracture. IMPRESSION: A 77-year-old female, status post fall, left displaced intertrochanteric hip fracture, history of atrial fibrillation, on Pradaxa. PLAN: I discussed the diagnosis and treatment options. I spoke of the option of nonoperative treatment versus surgery. Surgery will consist of open reduction and internal fixation with intramedullary nailing of the fracture. The risks of surgery discussed, which include, but are not limited to anesthesia, bleeding, infection, damage to nerves and blood vessels, pain, stiffness, failure of hardware, blood clots, embolisms and even . The patient's pain is severe. She favored the benefits over the risks. She did wish to proceed with surgery. Written consent has been obtained. The surgical site has been marked. MD ARTURO Barrientos/DIVINA , 10:26 AM , 10:50 AM
[2018-02-25] MEDS ORDERED: ceFAZolin 2 GM Premix Inj 2 GM/50 ML PIGGYBACK IV.SIG ONE (11:09)
[2018-02-25] MEDS ORDERED: Tranexamic Acid Inj 1,000 MG/10 ML Ampul ONE ×2 (11:19→11:33)
[2018-02-25] MEDS ORDERED: Sodium Chlor 0.9% Inj 50 ML ONE (11:20)
[2018-02-25] MEDS ORDERED: Neostigmine Inj 5 MG/5 ML Syringe IV.PUSH ONE (12:00)
[2018-02-25] MEDS ORDERED: Lidocaine PF 1% Inj 5 ML Syringe INFILTRATN ONE (12:00)
[2018-02-25] MEDS ORDERED: Phenylephrine/NS 1000 MCG/10ML Syringe IV.PUSH ONE (12:00)
[2018-02-25] MEDS ORDERED: Glycopyrrolate Inj 1 MG/5 ML Syringe IV.PUSH ONE (12:00)
[2018-02-25] MEDS ORDERED: Post-op Orders (for Pharmacy) OTHER STA (12:18)
[2018-02-25] MEDS ORDERED: *morphine SULFATE 4 MG/ML PERIprocedure ONLY ONE (12:42)
[2018-02-25] MEDS ORDERED: fentaNYL Citrate Inj 100 MCG/2 ML Ampul ONE (13:04)
--- NOTE | 2018-02-25 13:09 | MP ---
cc: Vinicius Coreas MD DATE OF OPERATION: 02/25/2018 DATE is 02/25/2018. PREOPERATIVE DIAGNOSIS: Left intertrochanteric hip fracture. POSTOPERATIVE DIAGNOSIS: Left intertrochanteric hip fracture. PROCEDURE PERFORMED: Trochanteric nailing, left intertrochanteric hip fracture. SURGEON: Vinicius Coreas MD PATIENT SERVICES REP: JORGE A John. ANESTHESIA: General. ESTIMATED BLOOD LOSS: 100 mL. COMPLICATIONS: None. IMPLANTS USED: Synthes. JUSTIFICATION FOR PROCEDURE: The patient is a 77-year-old female who fell and sustained a displaced left comminuted intertrochanteric hip fracture. She was taken to [facility] Emergency Room. Orthopedic Surgery was consulted. The patient was counseled as to the risks, benefits and alternatives of the above-named proposed surgical procedure. She did wish to proceed with surgery. PROCEDURE IN DETAIL: Written consent was obtained. The patient was identified by name, taken to the operating room and placed supine on the operating table and after general anesthesia was administered, as well as 2 grams of IV Ancef and 1 gram of IV vancomycin. The left foot was placed in a well-padded traction boot. The right leg was placed in a padded well leg katz. The left hip and left lower extremity were prepped and draped using isopropyl alcohol, Hibiclens solution and DuraPrep solution. After a timeout was performed, a longitudinal incision was made over the lateral aspect of the left hip. The fascial layer was incised. A guidewire was used to gain entrance into the intramedullary canal of the femur. Tis was followed by cannulated entry reamer and subsequently placement of a Synthes 11 mm titanium trochanteric femoral nail. The 130 degree locking jig was used to place a guide pin centered in the femoral head on the AP and lateral fluoroscopic projections. This was followed by placement of a 90 mm spiral blade. The top locking screw was secured to create a fixed angle sliding construct. Distally, the locking jig was used to place a single static lateral to medial transverse screw. Fluoroscopic imaging again confirmed hardware placement, fracture reduction. The surgical wounds were thoroughly irrigated with sterile saline solution. The deep fascial layer was closed with #1 Vicryl suture, subcutaneous layer with 2-0 Vicryl suture. Skin was closed with Dermabond and shiela. Sterile dressing applied. The patient tolerated the procedure well. No intraoperative complications noted. Chino Underwood, physician seo assistant certified was present during the entire procedure including patient positioning and the procedure itself. The medical necessity of the physician seo assistant was indicated in this case due to the complexity of the procedure. He assisted with appropriate manipulation of the leg and manipulation of the fracture. He assisted with achieving and maintaining fracture reduction along with implantation of the internal fixation device. Vinicius Coreas MD JWDewey/KD , 11:58 AM , 01:07 PM
--- NOTE | 2018-02-25 15:23 | XR ---
EXAM DATE: 02/25/2018 2:51 PM EDT AGE/SEX: 77 years / Female INDICATIONS: Left hip troch nail. CLINICAL DATA: This is the patient's initial encounter. Patient reports that signs and symptoms have been present for 1 day and indicates a pain score of Nonresponsive. MEDICAL/SURGICAL HISTORY: Non-responsive. Non-responsive. COMPARISON: [facility] [place], FEMUR LEFT 2V, 02/25/2018. . FINDINGS: There are postsurgical changes with operative reduction and internal fixation of the previously seen fracture. The alignment is anatomic. CONCLUSION: Postsurgical changes as above. Electronically signed by: Jose Abdi MD 02/25/2018 3:21 PM EDT
[2018-02-25] MEDS: ceFAZolin 2 GM Premix Inj 2 GM/50 ML PIGGYBACK IV.SIG SCH (18:35)
[2018-02-25] MEDS: Senna/Docusate Sodium 8.6/50 MG Tablet PO SCH (22:59)
[2018-02-25] MEDS: Morphine Inj 4 MG/ML Vial IV.PUSH PRN (23:00)
[2018-02-26] MEDS: ceFAZolin 2 GM Premix Inj 2 GM/50 ML PIGGYBACK IV.SIG SCH ×2 (02:17→10:14)
[2018-02-26 07:25] LABS: Baso # (Auto) 0.1 th/mm3 (0.0-0.2); Baso % (Auto) 0.5 % (0.0-2.0); Eos # (Auto) 0.1 th/mm3 (0.0-0.4); Eos % (Auto) 0.6 % (0.0-4.0); Hemoglobin 7.2 gm/dL (11.6-15.3); Lymph # (Auto) 1.2 th/mm3 (1.0-4.8); Lymph % (Auto) 12.3 % (9.0-44.0); Mean Corpuscular HGB Conc 32.9 % (32.0-36.0); Mean Corpuscular Hemoglobin 28.4 pg (27.0-34.0); Mean Corpuscular Volume 86.4 fL (80.0-100.0); Mean Platelet Volume 7.3 fL (7.0-11.0); Mono # (Auto) 1.3 th/mm3 (0.0-0.9); Mono % (Auto) 12.7 % (0.0-8.0); Neut # (Auto) 7.5 th/mm3 (1.8-7.7); Neut % (Auto) 73.9 % (16.0-70.0); Platelet Count 387 th/mm3 (150-450); Red Blood Count 2.55 mil/mm3 (4.00-5.30); Red Cell Distribution Width 16.3 % (11.6-17.2); White Blood Count 10.1 th/mm3 (4.0-11.0)
[2018-02-26 07:32] LABS: INR 1.3 Ratio; Prothrombin Time 13.5 sec (9.8-11.6)
[2018-02-26 07:50] LABS: Albumin 2.8 g/dL (3.4-5.0); Anion Gap 9 meq/L (5-15); Aspartate Aminotransferase 17 U/L (15-37); Blood Urea Nitrogen 15 mg/dL (7-18); Calcium 8.8 mg/dL (8.5-10.1); Carbon Dioxide 24.3 meq/L (21.0-32.0); Chloride 108 meq/L (98-107); Glomerular Filtration Rate 57 mL/min (>89); Glucose,Random 107 mg/dL (74-106); Potassium 4.1 meq/L (3.5-5.1); Sodium 141 meq/L (136-145)
[2018-02-26 07:53] LABS: Alanine Aminotransferase 14 U/L (10-53); Alkaline Phosphatase 103 U/L (45-117); Total Protein 5.7 g/dL (6.4-8.2)
[2018-02-26] MEDS: Multivitamin/Minerals Therapeutic Tablet PO SCH (08:44)
[2018-02-26] MEDS: Senna/Docusate Sodium 8.6/50 MG Tablet PO SCH ×2 (08:45→21:37)
[2018-02-26] MEDS: Folic Acid 1 MG Tablet PO SCH (08:45)
[2018-02-26] MEDS ORDERED: DEXLANSOPRAZOLE 30 MG PO SCH (09:00)
--- NOTE | 2018-02-26 11:20 | P.PNIM ---
Subjective Interval history: Pt complains of acid reflux and pain in the left hip area She uses Dexilant at home for the reflux because she states that she has tried all the other PPI and H2 blockers but those don't work for her for the reflux Physical Exam Vital signs: Vital Signs 02/25/18 12:18 02/25/18 12:30 02/25/18 12:45 Temperature 97.9 F Pulse Rate 69 60 60 Respiratory Rate 15 15 15 Blood Pressure 143/65 H 147/66 H 145/77 H Pulse Oximetry 99 100 95 02/25/18 13:00 02/25/18 16:00 02/25/18 20:00 Temperature 97.3 F L 98.1 F Pulse Rate 59 L 56 L 77 Respiratory Rate 15 18 20 Blood Pressure 141/68 H 123/63 126/57 L Pulse Oximetry 96 91 L 98 02/25/18 22:00 02/26/18 04:00 02/26/18 08:00 Temperature 98.4 F 98.5 F 98.4 F Pulse Rate 86 81 78 Respiratory Rate 18 20 18 Blood Pressure 116/58 L 128/59 L 136/63 Pulse Oximetry 95 94 L 100 Intake & Output 02/25/18 02/26/18 02/26/18 18:59 06:59 18:59 Intake Total 1750 / 1750 1050 / 1050 1050 / 1050 Output Total 100 / 100 Balance 1650 / 1650 1050 / 1050 1050 / 1050 Intake: IV 1050 / 1050 1050 / 1050 LR 1000 mL Inj 1,000 ML @ 100 1000 / 1000 mls/hr IV.CONT .Q10H MARYBETH Rx#: [id number] Ancef 2 GM Premix Inj 2 gm In 50 / 50 50 / 50 50 ml @ 100 mls/hr IV.SIG Q8H MARYBETH Rx#:[id number] Oral 400 / 400 Anesthesia Amount 1350 / 1350 Output: Estimated Blood Loss 100 / 100 Other: # Voids 2 Narrative: GENERAL: NAD, AAOx3 CARDIO: Regular RESP: Breath sounds equal bilaterally. ABD: +BS, soft, non-tender, nondistended. EXT: No cyanosis, or edema. Results - Labs CBC & Chem 7: 02/26/18 07:09 02/26/18 07:09 Laboratory Results - last 24 hr 02/25/18 02/26/18 02/26/18 11:10 07:05 07:09 WBC 10.1 RBC 2.55 L Hgb 7.2 L D Hct 22.0 L MCV 86.4 MCH 28.4 MCHC 32.9 RDW 16.3 Plt Count 387 MPV 7.3 Neut % (Auto) 73.9 H Lymph % (Auto) 12.3 [place] % (Auto) 12.7 H Eos % (Auto) 0.6 Baso % (Auto) 0.5 Neut # (Auto) 7.5 Lymph # (Auto) 1.2 [place] # (Auto) 1.3 H Eos # (Auto) 0.1 Baso # (Auto) 0.1 WBC Differential . Differential Comment Auto diff final PT 13.5 H INR 1.3 Sodium Potassium Chloride Carbon Dioxide Anion Gap BUN Creatinine Estimated GFR Random Glucose Calcium Total Bilirubin AST ALT Alkaline Phosphatase Total Protein Albumin Blood Type O Positive Blood Type Recheck Required Antibody Screen Negative 02/26/18 07:09 WBC RBC Hgb Hct MCV MCH MCHC RDW Plt Count MPV Neut % (Auto) Lymph % (Auto) [place] % (Auto) Eos % (Auto) Baso % (Auto) Neut # (Auto) Lymph # (Auto) [place] # (Auto) Eos # (Auto) Baso # (Auto) WBC Differential Differential Comment PT INR Sodium 141 Potassium 4.1 Chloride 108 H Carbon Dioxide 24.3 Anion Gap 9 BUN 15 Creatinine 0.95 Estimated GFR 57 L Random Glucose 107 H Calcium 8.8 Total Bilirubin 0.3 AST 17 ALT 14 Alkaline Phosphatase 103 Total Protein 5.7 L D Albumin 2.8 L Blood Type Blood Type Recheck Antibody Screen - Imaging Impressions Hip X-Ray 02/25/18 00:00 CONCLUSION: Postsurgical changes as above. Assessment and Plan - Assessment (1) Hip fracture, left Code(s): S72.002A - Fracture of unspecified part of neck of left femur, initial encounter for closed fracture Status: Acute Plan: Left hip fracture - Pt is a 77 y/o with atrial fibrillation on chronic anticoagulation with Pradaxa and GERD - [place] [facility] [place] a mechanical fall at home and was found to have sustained a left hip fracture - Appreciate Orthopedic Surgery consult - Pt s/p left hip trochanteric nailing on 02/25/[address] Coreas - Pain control PRN - Pradaxa resumed on 02/26 - Supportive care - IS - PT daily - She lives alone and will likely benefit from SNF placement for rehab at the end of this hospitalization GERD - PPI, pt to have her friend bring in her Dexilant as the Protonix isn't helping with her reflux The exam, history, and the medical decision-making described in the above note were completed with the assistance of the mid-level provider. I reviewed and agree with the findings presented. I attest that I had a [id number] encounter with the patient on the same day, and personally performed and documented my assessment and findings in the medical record. (2) Atrial fibrillation Code(s): I48.91 - Unspecified atrial fibrillation Status: Acute (3) GERD (gastroesophageal reflux disease) Code(s): K21.9 - Gastro-esophageal reflux disease without esophagitis Status: Acute
[2018-02-26] MEDS: Morphine Inj 4 MG/ML Vial IV.PUSH PRN ×2 (11:58→16:03)
--- NOTE | 2018-02-26 12:21 | P.PNOP ---
Physical Exam Vital signs: Vital Signs 02/25/18 12:30 02/25/18 12:45 02/25/18 13:00 Temperature Pulse Rate 60 60 59 L Respiratory Rate 15 15 15 Blood Pressure 147/66 H 145/77 H 141/68 H Pulse Oximetry 100 95 96 02/25/18 16:00 02/25/18 20:00 02/25/18 22:00 Temperature 97.3 F L 98.1 F 98.4 F Pulse Rate 56 L 77 86 Respiratory Rate 18 20 18 Blood Pressure 123/63 126/57 L 116/58 L Pulse Oximetry 91 L 98 95 02/26/18 04:00 02/26/18 08:00 Temperature 98.5 F 98.4 F Pulse Rate 81 78 Respiratory Rate 20 18 Blood Pressure 128/59 L 136/63 Pulse Oximetry 94 L 100 Intake & Output 02/25/18 02/26/18 02/26/18 18:59 06:59 18:59 Intake Total 1750 / 1750 1050 / 1050 1050 / 1050 Output Total 100 / 100 Balance 1650 / 1650 1050 / 1050 1050 / 1050 Intake: IV 1050 / 1050 1050 / 1050 LR 1000 mL Inj 1,000 ML @ 100 1000 / 1000 mls/hr IV.CONT .Q10H MARYBETH Rx#: [id number] Ancef 2 GM Premix Inj 2 gm In 50 / 50 50 / 50 50 ml @ 100 mls/hr IV.SIG Q8H MARYBETH Rx#:[id number] Oral 400 / 400 Anesthesia Amount 1350 / 1350 Output: Estimated Blood Loss 100 / 100 Other: # Voids 2 Narrative: GENERAL: NAD, AAOx3 CARDIO: Regular RESP: Breath sounds equal bilaterally. ABD: +BS, soft, non-tender, nondistended. EXT: No cyanosis, or edema. Results - Labs CBC & Chem 7: 02/26/18 07:09 02/26/18 07:09 Laboratory Results - last 24 hr 02/25/18 02/26/18 02/26/18 11:10 07:05 07:09 WBC 10.1 RBC 2.55 L Hgb 7.2 L D Hct 22.0 L MCV 86.4 MCH 28.4 MCHC 32.9 RDW 16.3 Plt Count 387 MPV 7.3 Neut % (Auto) 73.9 H Lymph % (Auto) 12.3 [place] % (Auto) 12.7 H Eos % (Auto) 0.6 Baso % (Auto) 0.5 Neut # (Auto) 7.5 Lymph # (Auto) 1.2 [place] # (Auto) 1.3 H Eos # (Auto) 0.1 Baso # (Auto) 0.1 WBC Differential . Differential Comment Auto diff final PT 13.5 H INR 1.3 Sodium Potassium Chloride Carbon Dioxide Anion Gap BUN Creatinine Estimated GFR Random Glucose Calcium Total Bilirubin AST ALT Alkaline Phosphatase Total Protein Albumin Antibody Screen Negative 02/26/18 07:09 WBC RBC Hgb Hct MCV MCH MCHC RDW Plt Count MPV Neut % (Auto) Lymph % (Auto) [place] % (Auto) Eos % (Auto) Baso % (Auto) Neut # (Auto) Lymph # (Auto) [place] # (Auto) Eos # (Auto) Baso # (Auto) WBC Differential Differential Comment PT INR Sodium 141 Potassium 4.1 Chloride 108 H Carbon Dioxide 24.3 Anion Gap 9 BUN 15 Creatinine 0.95 Estimated GFR 57 L Random Glucose 107 H Calcium 8.8 Total Bilirubin 0.3 AST 17 ALT 14 Alkaline Phosphatase 103 Total Protein 5.7 L D Albumin 2.8 L Antibody Screen - Imaging Impressions Hip X-Ray 02/25/18 00:00 CONCLUSION: Postsurgical changes as above. Assessment and Plan - Assessment and Plan pod 1 s/p left troch nail hct 22 lying in bed nad planl; transfuse 1 unit prbc out of bed change dressing tomorrow plavix scds
[2018-02-26 22:00] LABS: Hematocrit 25.4 % (35.0-46.0); Hemoglobin 8.3 gm/dL (11.6-15.3)
[2018-02-27] MEDS: Multivitamin/Minerals Therapeutic Tablet PO SCH (09:17)
[2018-02-27] MEDS: Senna/Docusate Sodium 8.6/50 MG Tablet PO SCH ×2 (09:18→21:39)
[2018-02-27] MEDS: Folic Acid 1 MG Tablet PO SCH (09:18)
--- NOTE | 2018-02-27 10:06 | P.PNIM ---
Subjective Interval history: Pt reports that she is still having significant pain in the LLE and she also feels like her right leg is very stiff and this is limiting her mobility as well. Afebrile Vitals are stable. Tolerating oral intake. Physical Exam Vital signs: Vital Signs 02/26/18 12:00 02/26/18 14:49 02/26/18 16:00 Temperature 99.6 F 99.5 F 98.7 F Pulse Rate 78 77 Respiratory Rate 18 12 Blood Pressure 132/63 165/74 H 157/70 H Pulse Oximetry 95 96 99 02/26/18 20:00 02/26/18 21:40 02/27/18 00:00 Temperature 101.0 F H 100.4 F H 100.6 F H Pulse Rate 86 89 Respiratory Rate 17 18 17 Blood Pressure 185/70 H 154/70 H Pulse Oximetry 91 L 97 99 02/27/18 04:00 02/27/18 08:00 Temperature 97.6 F 98.8 F Pulse Rate 87 81 Respiratory Rate 17 18 Blood Pressure 167/66 H 133/62 Pulse Oximetry 95 96 Intake & Output 02/26/18 02/27/18 02/27/18 18:59 06:59 18:59 Intake Total 2510 / 2510 100 / 100 Balance 2510 / 2510 100 / 100 Weight 81.2 kg Intake: IV 2100 / 2100 LR 1000 mL Inj 1,000 ML @ 100 1000 / 1000 mls/hr IV.CONT .Q10H MARYBETH Rx#: [id number] Ancef 2 GM Premix Inj 2 gm In 100 / 100 50 ml @ 100 mls/hr IV.SIG Q8H MARYBETH Rx#:[id number] Oral 100 / 100 Other Rbc As-3 Leukoreduced Unit / [id number] Intake (Blood Product) Amt 400 / 400 Rbc As-3 Leukoreduced Unit 400 / 400 [id number] Other: Other Intake Source Rbc As-3 Leukoreduced Unit Saline Solution [id number] # Voids 2 1 Narrative: GENERAL: NAD, AAOx3 CARDIO: Regular RESP: Breath sounds equal bilaterally. ABD: +BS, soft, non-tender, nondistended. EXT: No cyanosis, or edema. Results - Labs CBC & Chem 7: 02/27/18 09:26 02/26/18 07:09 Laboratory Results - last 24 hr 07/15/18 07/15/18 13:30 20:58 Hgb 8.3 L Hct 25.4 L MTS Gel Crossmatch See Detail - Imaging Hip X-Ray 02/25/18 00:00 CONCLUSION: Postsurgical changes as above. Femur X-Ray 02/25/18 02:33 CONCLUSION: Left hip fracture Pelvis X-Ray 02/25/18 02:33 CONCLUSION: Left hip fracture Chest X-Ray 02/25/18 02:34 CONCLUSION: No acute disease Assessment and Plan - Assessment (1) Hip fracture, left Code(s): S72.002A - Fracture of unspecified part of neck of left femur, initial encounter for closed fracture Status: Acute Plan: Left hip fracture - Pt is a 77 y/o with atrial fibrillation on chronic anticoagulation with Pradaxa and GERD - She was admitted to [facility] on 02/25/18 after a mechanical fall at home and was found to have sustained a left hip fracture - Appreciate Orthopedic Surgery consult - Pt s/p left hip trochanteric nailing on 02/25/[address] Coreas - Pain control PRN - Pradaxa resumed on 02/26 - Repeat labs on 02/26 noted a decrease in her Hgb down to 7.2 and Hct 22.1 - Pt was transfused with 1 units PRBCs with repeat labs on 02/26 with Hgb 8.3 - Repeat labs on 02/27 are pending. - Supportive care - IS - PT daily - She lives alone and will likely benefit from SNF placement for rehab at the end of this hospitalization GERD - PPI, pt to have her friend bring in her Dexilant as the Protonix isn't helping with her reflux (2) Atrial fibrillation Code(s): I48.91 - Unspecified atrial fibrillation Status: Acute (3) GERD (gastroesophageal reflux disease) Code(s): K21.9 - Gastro-esophageal reflux disease without esophagitis Status: Acute - Attending Attestation Patient examined. Assessment and plan formulated with Terra Ferreira PA-C. I agree with the above. Pt interviewed and examined. Pt will need SNF upon discharge. Anticipate discharge 02/28 Await Orthopedic clearance.
[2018-02-27 10:53] LABS: Baso % (Auto) 0.4 % (0.0-2.0); Eos % (Auto) 0.1 % (0.0-4.0); Hematocrit 25.5 % (35.0-46.0); Hemoglobin 8.3 gm/dL (11.6-15.3); Lymph # (Auto) 0.7 th/mm3 (1.0-4.8); Lymph % (Auto) 5.7 % (9.0-44.0); Mean Corpuscular HGB Conc 32.6 % (32.0-36.0); Mean Corpuscular Hemoglobin 27.4 pg (27.0-34.0); Mean Platelet Volume 7.6 fL (7.0-11.0); Mono # (Auto) 1.8 th/mm3 (0.0-0.9); Mono % (Auto) 14.9 % (0.0-8.0); Neut # (Auto) 9.6 th/mm3 (1.8-7.7); Neut % (Auto) 78.9 % (16.0-70.0); Platelet Count 351 th/mm3 (150-450); Red Blood Count 3.04 mil/mm3 (4.00-5.30); Red Cell Distribution Width 16.3 % (11.6-17.2); White Blood Count 12.2 th/mm3 (4.0-11.0)
--- NOTE | 2018-02-27 14:38 | P.PNOP ---
Subjective Interval history: doing well. Physical Exam Vital signs: Vital Signs 02/26/18 14:49 02/26/18 16:00 02/26/18 20:00 Temperature 99.5 F 98.7 F 101.0 F H Pulse Rate 77 86 Respiratory Rate 12 17 Blood Pressure 165/74 H 157/70 H 185/70 H Pulse Oximetry 96 99 91 L 02/26/18 21:40 02/27/18 00:00 02/27/18 04:00 Temperature 100.4 F H 100.6 F H 97.6 F Pulse Rate 89 87 Respiratory Rate 18 17 17 Blood Pressure 154/70 H 167/66 H Pulse Oximetry 97 99 95 02/27/18 08:00 Temperature 98.8 F Pulse Rate 81 Respiratory Rate 18 Blood Pressure 133/62 Pulse Oximetry 96 Intake & Output 02/26/18 02/27/18 02/27/18 18:59 06:59 18:59 Intake Total 2510 / 2510 100 / 100 Balance 2510 / 2510 100 / 100 Weight 81.2 kg Intake: IV 2100 / 2100 LR 1000 mL Inj 1,000 ML @ 100 1000 / 1000 mls/hr IV.CONT .Q10H MARYBETH Rx#: [id number] Ancef 2 GM Premix Inj 2 gm In 100 / 100 50 ml @ 100 mls/hr IV.SIG Q8H MARYBETH Rx#:[id number] Oral 100 / 100 Other 10 / 10 Rbc As-3 Leukoreduced Unit / 10 [id number] Intake (Blood Product) Amt 400 / 400 Rbc As-3 Leukoreduced Unit 400 / 400 [id number] Other: Other Intake Source Rbc As-3 Leukoreduced Unit Saline Solution [id number] # Voids 2 1 Narrative: in chair, nad dressing c/d/i neg homanaldo nvi Results - Labs CBC & Chem 7: 02/27/18 09:26 02/26/18 07:09 Laboratory Results - last 24 hr 02/26/18 02/26/18 02/27/18 13:30 20:58 09:26 WBC 12.2 H RBC 3.04 L Hgb 8.3 L 8.3 L Hct 25.4 L 25.5 L MCV 84.0 MCH 27.4 MCHC 32.6 RDW 16.3 Plt Count 351 MPV 7.6 Neut % (Auto) 78.9 H Lymph % (Auto) 5.7 L [place] % (Auto) 14.9 H Eos % (Auto) 0.1 Baso % (Auto) 0.4 Neut # (Auto) 9.6 H Lymph # (Auto) 0.7 L [place] # (Auto) 1.8 H Eos # (Auto) 0.0 Baso # (Auto) 0.0 WBC Differential . Differential Comment Auto diff final MTS Gel Crossmatch See Detail Assessment and Plan - Ortho Post Op Day # 2 - Assessment and Plan s/p L Troch nail POD 2 TTWB daily dressing changes pradaxa out of bed scds f/up dr. méndez 2 weeks
[2018-02-28] MEDS ORDERED: Metoprolol Tartrate 25 MG Tablet PO ONE (01:15)
[2018-02-28] MEDS ORDERED: Metoprolol Inj 5 MG/5 ML Vial IV.PUSH PRN (04:02)
[2018-02-28] MEDS ORDERED: dilTIAZem Inj 125 MG in Sodium Chlor 0.9% Inj 100 ML IV.CONT PRN (06:11)
[2018-02-28] MEDS ORDERED: dilTIAZem Inj 50 MG/10 ML Vial IV.PUSH ONE (06:30)
[2018-02-28] MEDS ORDERED: Sodium Chlor 0.9% Inj 500 ML IV.SIG ONE (06:52)
[2018-02-28] MEDS: Multivitamin/Minerals Therapeutic Tablet PO SCH (08:03)
[2018-02-28] MEDS: Folic Acid 1 MG Tablet PO SCH (08:03)
[2018-02-28] MEDS: Digoxin Inj 500 MCG/2 ML Ampul IV.PUSH SCH (08:03)
[2018-02-28] MEDS: Metoprolol Tartrate 25 MG Tablet PO SCH ×2 (08:04→21:44)
[2018-02-28] MEDS: Senna/Docusate Sodium 8.6/50 MG Tablet PO SCH ×2 (08:04→21:44)
--- NOTE | 2018-02-28 08:30 | US ---
EXAM DATE: 02/28/2018 8:15 AM EDT AGE/SEX: 77 years / Female INDICATIONS: Bilateral leg pain. CLINICAL DATA: This is the patient's initial encounter. Patient reports that signs and symptoms have been present for 3 days and indicates a pain score of 9/10. MEDICAL/SURGICAL HISTORY: . AFib. GERD. Anticoagulant therapy, Pradaxa. None. COMPARISON: No prior exams available for comparison. TECHNIQUE: Venous ultrasound of both lower extremities was performed from the inguinal ligament to t he proximal calf. Real-time, color Doppler and spectral tracing, compression and augmentation techni ques were used. FINDINGS: Right Leg: Normal compression of the deep venous system from the inguinal region to the proximal cathy f. No echogenic clot is seen. Normal response of the venous system to augmentation and respiration. Left Leg: Nonocclusive thrombus noted in the left posterior tibial vein in the central calf.Normal c ompression of the deep venous system from the inguinal region to the popliteal vein. Normal response of the venous system to augmentation and respiration. Other: None. CONCLUSION: 1. 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 2. No sonographic evidence for right lower extremity DVT. Electronically signed by: Evan Wells MD 02/28/2018 8:29 AM EDT
--- NOTE | 2018-02-28 09:07 | P.PNOP ---
Subjective Interval history: L hip improving. Increasing Pain R knee and R ankle. Physical Exam Vital signs: Vital Signs 02/27/18 12:00 02/27/18 20:00 02/27/18 21:40 Temperature 97.4 F L 99.3 F Pulse Rate 88 91 H Respiratory Rate 18 15 15 Blood Pressure 134/63 131/63 Pulse Oximetry 95 94 L 02/28/18 00:00 02/28/18 03:30 02/28/18 04:00 Temperature 98.9 F 98.8 F Pulse Rate 95 H 94 H Respiratory Rate 15 15 15 Blood Pressure 130/67 129/69 Pulse Oximetry 93 L 94 L 02/28/18 05:00 02/28/18 08:00 Temperature 98.7 F 98.8 F Pulse Rate 140 H 109 H Respiratory Rate 20 21 Blood Pressure 121/80 115/52 L Pulse Oximetry 91 L 92 L Intake & Output 02/27/18 02/28/18 02/28/18 18:59 06:59 18:59 Intake Total 480 / 480 Balance 480 / 480 Intake: Oral 480 / 480 Other: # Voids 1 Date of Last Bowel Movement 02/27/18 02/27/18 # Bowel Movements 0 Narrative: in bed, nad dressing c/d/i neg homas nvi R knee and ankle swelling, tender to palpation Results - Labs CBC & Chem 7: 02/27/18 09:26 02/26/18 07:09 Laboratory Results - last 24 hr 02/27/18 09:26 WBC 12.2 H RBC 3.04 L Hgb 8.3 L Hct 25.5 L MCV 84.0 MCH 27.4 MCHC 32.6 RDW 16.3 Plt Count 351 MPV 7.6 Neut % (Auto) 78.9 H Lymph % (Auto) 5.7 L [place] % (Auto) 14.9 H Eos % (Auto) 0.1 Baso % (Auto) 0.4 Neut # (Auto) 9.6 H Lymph # (Auto) 0.7 L [place] # (Auto) 1.8 H Eos # (Auto) 0.0 Baso # (Auto) 0.0 WBC Differential . Differential Comment Auto diff final - Imaging Impressions Venous Doppler Study 02/28/18 06:30 CONCLUSION: 1. 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 2. No sonographic evidence for right lower extremity DVT. Assessment and Plan - Ortho Post Op Day # 3 - Assessment and Plan s/p L Troch nail POD 3 TTWB daily dressing changes pradaxa out of bed increasing R knee and R ankle pain - order xray f/up dr. méndez 2 weeks
--- NOTE | 2018-02-28 10:53 | XR ---
EXAM DATE: 02/28/2018 10:50 AM EDT AGE/SEX: 77 years / Female INDICATIONS: Right knee pain. no known trauma. CLINICAL DATA: This is the patient's initial encounter. Patient reports that signs and symptoms have been present for 3 days and indicates a pain score of 10/10. MEDICAL/SURGICAL HISTORY: . has had injections, per patient None. COMPARISON: No prior exams available for comparison. FINDINGS: There is chondrocalcinosis in the medial lateral compartments with mild osteophyte formatio n and degenerative changes. No definite fractures, dislocations, lytic, or sclerotic lesions are seen . Slight superimposed osteoarthritis is seen within tricompartments. There is moderate joint effusion . CONCLUSION: Chondrocalcinosis and possibility of CPPD should be entertained. Osteoarthritis and mode rate joint effusion. Electronically signed by: Kevin Zuniga MD 02/28/2018 10:52 AM EDT
--- NOTE | 2018-02-28 11:16 | XR ---
EXAM DATE: 02/28/2018 10:54 AM EDT AGE/SEX: 77 years / Female INDICATIONS: Right ankle pain. CLINICAL DATA: This is the patient's initial encounter. Patient reports that signs and symptoms have been present for 3 days and indicates a pain score of 10/10. MEDICAL/SURGICAL HISTORY: None. None. COMPARISON: No prior exams available for comparison. FINDINGS: No definite fractures, or dislocations are identified. No definite lytic or sclerotic les ion is seen. Calcaneal spur is present at the attachment site of the plantar aponeurosis and there a re calcifications involving the plantar aponeurosis . Slight osteopenia is seen. CONCLUSION: Chronic changes and no definite fracture for technique. Electronically signed by: Kevin Zuniga MD 02/28/2018 11:14 AM EDT
--- NOTE | 2018-02-28 16:26 | P.PNIM ---
Subjective Interval history: Pt complains of increased pain in the right knee and ankle today and finds it difficult to move that leg She was moved to [facility] overnight due to A. fib RVR with HR into the 140's Pt was given IV Cardizem, Metoprolol PO, and Dig IV and was started on Cardizem gtt. Pt has converted to NSR and Cardizem gtt has been stopped. Physical Exam Vital signs: Vital Signs 02/27/18 20:00 02/27/18 21:40 02/28/18 00:00 Temperature 99.3 F 98.9 F Pulse Rate 91 H 95 H Respiratory Rate 15 15 15 Blood Pressure 131/63 130/67 Pulse Oximetry 94 L 93 L 02/28/18 03:30 02/28/18 04:00 02/28/18 05:00 Temperature 98.8 F 98.7 F Pulse Rate 94 H 140 H Respiratory Rate 15 15 20 Blood Pressure 129/69 121/80 Pulse Oximetry 94 L 91 L 02/28/18 08:00 02/28/18 09:00 02/28/18 12:00 Temperature 98.8 F 98.6 F Pulse Rate 109 H 109 H 76 Respiratory Rate 21 18 Blood Pressure 115/52 L 87/54 L Pulse Oximetry 92 L 99 02/28/18 12:20 02/28/18 14:41 Temperature Pulse Rate 76 Respiratory Rate 18 Blood Pressure Pulse Oximetry Intake & Output 02/27/18 02/28/18 02/28/18 18:59 06:59 18:59 Intake Total 480 / 480 Balance 480 / 480 Intake: Oral 480 / 480 Other: # Voids 1 Date of Last Bowel Movement 02/27/18 02/27/18 # Bowel Movements 0 Narrative: GENERAL: NAD, AAOx3 CARDIO: Regular RESP: Breath sounds equal bilaterally. ABD: +BS, soft, non-tender, nondistended. EXT: Dressing on left hip c/d/i, R knee and ankle with some mild swelling, tender to palpation and pain with passive ROM Results - Labs CBC & Chem 7: 03/02/18 04:58 03/01/18 08:12 Laboratory Results - last 24 hr 02/28/18 11:00 Digoxin 0.7 L - Imaging Impressions Ankle X-Ray 02/28/18 00:00 CONCLUSION: Chronic changes and no definite fracture for technique. Knee X-Ray 02/28/18 00:00 CONCLUSION: Chondrocalcinosis and possibility of CPPD should be entertained. Osteoarthritis and moderate joint effusion. Venous Doppler Study 02/28/18 06:30 CONCLUSION: 1. 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 2. No sonographic evidence for right lower extremity DVT. Hip X-Ray 02/25/18 00:00 CONCLUSION: Postsurgical changes as above. Femur X-Ray 02/25/18 02:33 CONCLUSION: Left hip fracture Pelvis X-Ray 02/25/18 02:33 CONCLUSION: Left hip fracture Chest X-Ray 02/25/18 02:34 CONCLUSION: No acute disease Assessment and Plan - Assessment (1) Hip fracture, left Code(s): S72.002A - Fracture of unspecified part of neck of left femur, initial encounter for closed fracture Status: Acute Plan: Left hip fracture - Pt is a 77 y/o with atrial fibrillation on chronic anticoagulation with Pradaxa and GERD - She was admitted [place] [facility] on 02/25/18 after a mechanical fall at home and was found to have sustained a left hip fracture - Appreciate Orthopedic Surgery consult - Pt s/p left hip trochanteric nailing on 02/25/[address] Coreas - Pain control PRN - Pradaxa resumed on 02/26 - Repeat labs on 02/26 noted a decrease in her Hgb down to 7.2 and Hct 22.1 - Pt was transfused with 1 units PRBCs with repeat labs on 02/26 with Hgb 8.3 - Pt had increased pain in the right knee and ankle on 02/27 overnight and went into A. fib RVR and transferred to [facility]. - Right Ankle X-Ray (02/28/18) --> Chronic changes and no definite fracture for technique. - Right Knee X-Ray (02/28/18) --> Chondrocalcinosis and possibility of CPPD should be entertained. Osteoarthritis and moderate joint effusion. 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 No sonographic evidence for right lower extremity DVT. - We will give a few doses of Solu-Medrol 40mg Q6H x 3 doses to see if this helps with some of the right knee and ankle pain. - Repeat labs on 02/27 with stable Hgb. - Supportive care - IS - PT daily - She lives alone and will likely benefit from SNF placement for rehab at the end of this hospitalization A. fib with RVR - She was moved to [facility] overnight due to A. fib RVR with HR into the 140's - Pt was given IV Cardizem, Metoprolol PO and IV, and a dose of Dig IV and was started on Cardizem gtt. - Dig level 0.7 on 02/28 - Pt has converted to NSR and Cardizem gtt has been stopped. - Cont. Metoprolol 25mg po BID - Pt is on Pradaxa - Monitor on telemetry GERD - PPI, pt to have her friend bring in her Dexilant as the Protonix isn't helping with her reflux (2) Atrial fibrillation Code(s): I48.91 - Unspecified atrial fibrillation Status: Acute (3) GERD (gastroesophageal reflux disease) Code(s): K21.9 - Gastro-esophageal reflux disease without esophagitis Status: Acute - Attending Attestation Patient examined. Assessment and plan formulated with Terra THAKKAR I agree with the above.
[2018-02-28] MEDS: MethylPREDNISolone Sod Succinate Inj 40 MG/ML Vial IV.PUSH SCH ×2 (17:31→22:57)
[2018-03-01] MEDS: MethylPREDNISolone Sod Succinate Inj 40 MG/ML Vial IV.PUSH SCH (05:31)
[2018-03-01] MEDS: Multivitamin/Minerals Therapeutic Tablet PO SCH (09:39)
[2018-03-01] MEDS: Folic Acid 1 MG Tablet PO SCH (09:39)
[2018-03-01] MEDS: Metoprolol Tartrate 25 MG Tablet PO SCH ×2 (09:39→21:25)
[2018-03-01] MEDS: Senna/Docusate Sodium 8.6/50 MG Tablet PO SCH ×2 (09:39→21:25)
[2018-03-01] MEDS: Digoxin Inj 500 MCG/2 ML Ampul IV.PUSH SCH (09:39)
[2018-03-01 09:41] LABS: Calcium 9.5 mg/dL (8.5-10.1); Carbon Dioxide 24.5 meq/L (21.0-32.0); Potassium 4.4 meq/L (3.5-5.1)
[2018-03-01 09:43] LABS: Lymph # (Auto) 0.3 th/mm3 (1.0-4.8); Lymph % (Auto) 3.6 % (9.0-44.0); Mean Corpuscular HGB Conc 32.5 % (32.0-36.0); Mean Corpuscular Hemoglobin 27.5 pg (27.0-34.0); Mean Corpuscular Volume 84.7 fL (80.0-100.0); Mean Platelet Volume 7.9 fL (7.0-11.0); Mono # (Auto) 0.3 th/mm3 (0.0-0.9); Mono % (Auto) 3.1 % (0.0-8.0); Neut # (Auto) 7.9 th/mm3 (1.8-7.7); Neut % (Auto) 93.3 % (16.0-70.0); Platelet Count 340 th/mm3 (150-450); Red Blood Count 2.48 mil/mm3 (4.00-5.30); Red Cell Distribution Width 16.3 % (11.6-17.2); White Blood Count 8.5 th/mm3 (4.0-11.0)
[2018-03-01 09:54] LABS: Hemoglobin 6.8 gm/dL (11.6-15.3)
--- NOTE | 2018-03-01 11:24 | P.PNOP ---
Subjective Interval history: hip doing well. R knee and R ankle also feeling better. Physical Exam Vital signs: Vital Signs 02/28/18 12:00 02/28/18 12:20 02/28/18 14:41 Temperature 98.6 F Pulse Rate 76 76 Respiratory Rate 18 18 Blood Pressure 87/54 L Pulse Oximetry 99 02/28/18 16:00 02/28/18 20:00 03/01/18 00:00 Temperature 98.9 F 98.4 F 98.1 F Pulse Rate 80 72 67 Respiratory Rate 21 16 19 Blood Pressure 135/58 L 123/68 124/59 L Pulse Oximetry 94 L 96 93 L 03/01/18 03:00 03/01/18 04:00 03/01/18 08:00 Temperature 98.2 F 97.6 F Pulse Rate 68 92 H Respiratory Rate 19 16 21 Blood Pressure 124/61 153/72 H Pulse Oximetry 95 97 03/01/18 09:00 Temperature Pulse Rate 92 H Respiratory Rate Blood Pressure Pulse Oximetry Intake & Output 02/28/18 03/01/18 03/01/18 18:59 06:59 18:59 Intake Total 1950 / 1950 480 / 480 Output Total 100 / 100 Balance 1850 / 1850 480 / 480 Weight 79.2 kg Intake: Oral 600 / 600 480 / 480 Anesthesia Amount 1350 / 1350 Output: Estimated Blood Loss 100 / 100 Other: # Voids 1 2 Date of Last Bowel Movement 02/28/18 02/28/18 # Bowel Movements 1 Narrative: in bed, nad dressing L hip c/d/i thigh soft neg homans nvi Results - Labs CBC & Chem 7: 03/01/18 08:12 03/01/18 08:12 Laboratory Results - last 24 hr 02/28/18 03/01/18 03/01/18 11:00 08:12 08:12 WBC 8.5 RBC 2.48 L Hgb 6.8 L* Hct 21.0 L MCV 84.7 MCH 27.5 MCHC 32.5 RDW 16.3 Plt Count 340 MPV 7.9 Neut % (Auto) 93.3 H Lymph % (Auto) 3.6 L [place] % (Auto) 3.1 Eos % (Auto) 0.0 Baso % (Auto) 0.0 Neut # (Auto) 7.9 H Lymph # (Auto) 0.3 L [place] # (Auto) 0.3 Eos # (Auto) 0.0 Baso # (Auto) 0.0 WBC Differential . Differential Comment Auto diff final Sodium 139 Potassium 4.4 Chloride 105 Carbon Dioxide 24.5 Anion Gap 10 BUN 20 H Creatinine 0.73 Estimated GFR 77 L Random Glucose 144 H Calcium 9.5 Digoxin 0.7 L Assessment and Plan - Ortho Post Op Day # 4 - Assessment and Plan s/p L Troch nail POD 4 TTWB daily dressing changes pradaxa out of bed increasing R knee and R ankle pain - xray negative for fracture. pain and motion both improving. f/up dr. méndez 2 weeks
[2018-03-01] MEDS ORDERED: Sodium Chlor 0.9% Inj 250 ML IV.SIG SCH (18:00)
--- NOTE | 2018-03-01 18:03 | P.PNIM ---
Subjective Interval history: Follow up Left hip fracture s/p s/p left hip trochanteric nailing on 02/25/[address] 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 hgb this AM 6.8 patient currently in SR Patient reports left knee pain improved with solu medrol offers no new concerns/complaints Physical Exam Vital signs: Vital Signs 02/28/18 20:00 03/01/18 00:00 03/01/18 03:00 Temperature 98.4 F 98.1 F Pulse Rate 72 67 Respiratory Rate 16 19 19 Blood Pressure 123/68 124/59 L Pulse Oximetry 96 93 L 03/01/18 04:00 03/01/18 08:00 03/01/18 09:00 Temperature 98.2 F 97.6 F Pulse Rate 68 92 H 92 H Respiratory Rate 16 21 Blood Pressure 124/61 153/72 H Pulse Oximetry 95 97 03/01/18 12:00 03/01/18 14:16 03/01/18 15:00 Temperature 98 F Pulse Rate 81 Respiratory Rate 20 16 16 Blood Pressure 135/68 Pulse Oximetry 98 Intake & Output 02/28/18 03/01/18 03/01/18 18:59 06:59 18:59 Intake Total 1950 / 1950 480 / 480 Output Total 100 / 100 Balance 1850 / 1850 480 / 480 Weight 79.2 kg Intake: Oral 600 / 600 480 / 480 Anesthesia Amount 1350 / 1350 Output: Estimated Blood Loss 100 / 100 Other: # Voids 1 2 Date of Last Bowel Movement 02/28/18 02/28/18 02/28/18 # Bowel Movements 1 Narrative: GENERAL: NAD, AAOx3 CARDIO: Regular rate and rhythm RESP: Breath sounds equal bilaterally. ABD: +BS, soft, non-tender, nondistended. EXT: Dressing on left hip c/d/i, R knee and ankle with some mild swelling, tender to palpation and pain with passive ROM Results - Labs CBC & Chem 7: 03/02/18 04:58 03/01/18 08:12 Laboratory Results - last 24 hr 03/01/18 03/01/18 08:12 08:12 WBC 8.5 RBC 2.48 L Hgb 6.8 L* Hct 21.0 L MCV 84.7 MCH 27.5 MCHC 32.5 RDW 16.3 Plt Count 340 MPV 7.9 Neut % (Auto) 93.3 H Lymph % (Auto) 3.6 L [place] % (Auto) 3.1 Eos % (Auto) 0.0 Baso % (Auto) 0.0 Neut # (Auto) 7.9 H Lymph # (Auto) 0.3 L [place] # (Auto) 0.3 Eos # (Auto) 0.0 Baso # (Auto) 0.0 WBC Differential . Differential Comment Auto diff final Sodium 139 Potassium 4.4 Chloride 105 Carbon Dioxide 24.5 Anion Gap 10 BUN 20 H Creatinine 0.73 Estimated GFR 77 L Random Glucose 144 H Calcium 9.5 Assessment and Plan - Assessment (1) Hip fracture, left Code(s): S72.002A - Fracture of unspecified part of neck of left femur, initial encounter for closed fracture Status: Acute Plan: Left hip fracture - Pt is a 77 y/o with atrial fibrillation on chronic anticoagulation with Pradaxa and GERD - She was admitted to [facility] on 02/25/18 after a mechanical fall at home and was found to have sustained a left hip fracture - Appreciate Orthopedic Surgery consult - Pt s/p left hip trochanteric nailing on 02/25/[address] Coreas - Pain control PRN - Pradaxa resumed on 02/26 - Repeat labs on 02/26 noted a decrease in her Hgb down to 7.2 and Hct 22.1 - Pt was transfused with 1 units PRBCs with repeat labs on 02/26 with Hgb 8.3 - Pt had increased pain in the right knee and ankle on 02/27 overnight and went into A. fib RVR and transferred to [facility]. - Right Ankle X-Ray (02/28/18) --> Chronic changes and no definite fracture for technique. - Right Knee X-Ray (02/28/18) --> Chondrocalcinosis and possibility of CPPD should be entertained. Osteoarthritis and moderate joint effusion. 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 No sonographic evidence for right lower extremity DVT. - We will give a few doses of Solu-Medrol 40mg Q6H x 3 doses to see if this helps with some of the right knee and ankle pain. - Repeat labs on 02/27 with stable Hgb. - Supportive care - IS - PT daily - She lives alone and will likely benefit from SNF placement for rehab at the end of this hospitalization A. fib with RVR - She was moved to [facility] overnight due to A. fib RVR with HR into the 140's - Pt was given IV Cardizem, Metoprolol PO and IV, and a dose of Dig IV and was started on Cardizem gtt. - Dig level 0.7 on 02/28 - Pt has converted to NSR and Cardizem gtt has been stopped. - Cont. Metoprolol 25mg po BID - Pt is on Pradaxa 75 mg BID - Monitor on telemetry GERD - PPI, pt to have her friend bring in her Dexilant as the Protonix isn't helping with her reflux ANEMIA - hgb 6.8 this AM will transfuse 2 units PRBCs now - recheck CBC in AM (2) Atrial fibrillation Code(s): I48.91 - Unspecified atrial fibrillation Status: Acute (3) GERD (gastroesophageal reflux disease) Code(s): K21.9 - Gastro-esophageal reflux disease without esophagitis Status: Acute - Attending Attestation Patient examined. Assessment and plan formulated with Irasema Zamora PA-C. I agree with the above.
[2018-03-02] MEDS: Morphine Inj 4 MG/ML Vial IV.PUSH PRN (02:17)
[2018-03-02 06:06] LABS: Baso % (Auto) 0.1 % (0.0-2.0); Hematocrit 26.3 % (35.0-46.0); Hemoglobin 8.8 gm/dL (11.6-15.3); Lymph # (Auto) 0.5 th/mm3 (1.0-4.8); Lymph % (Auto) 4.5 % (9.0-44.0); Mean Corpuscular HGB Conc 33.4 % (32.0-36.0); Mean Corpuscular Hemoglobin 27.2 pg (27.0-34.0); Mean Corpuscular Volume 81.3 fL (80.0-100.0); Mean Platelet Volume 7.7 fL (7.0-11.0); Mono % (Auto) 9.9 % (0.0-8.0); Neut # (Auto) 8.7 th/mm3 (1.8-7.7); Neut % (Auto) 85.5 % (16.0-70.0); Platelet Count 368 th/mm3 (150-450); Red Blood Count 3.23 mil/mm3 (4.00-5.30); Red Cell Distribution Width 17.5 % (11.6-17.2); White Blood Count 10.2 th/mm3 (4.0-11.0)
[2018-03-02] MEDS: Multivitamin/Minerals Therapeutic Tablet PO SCH (09:38)
[2018-03-02] MEDS: Metoprolol Tartrate 25 MG Tablet PO SCH (09:39)
[2018-03-02] MEDS: Folic Acid 1 MG Tablet PO SCH (09:39)
[2018-03-02] MEDS: Senna/Docusate Sodium 8.6/50 MG Tablet PO SCH (09:40)
[2018-03-02] MEDS: Digoxin Inj 500 MCG/2 ML Ampul IV.PUSH SCH (09:40)
--- NOTE | 2018-03-02 14:48 | P.DS ---
<Irasema Zamora W - Last Filed: 03/02/18 15:37> Date of admission: 02/25/18 05:55 Primary care physician: Fabián Maravilla Attending physician on discharge: Des Esteves Brief History from admission: Ms. Vargas is a pleasant 77 y/o WF with atrial fibrillation on chronic anticoagulation with Pradaxa BID, GERD, and chronic back pain. Pt was brought to the ED at [facility] on 02/25/18 with complaints of left leg and hip pain after she fell off her ottoman last night. She rpeorts that she was sitting on the ottoman when it tipped out from underneath her and she fell onto her left side. She had immediate pain in the left hip and thigh and was unable to stand. She lives alone but was able to crawl to the phone to call 9--1. In the ED pt was found to have a left hip fracture. Orthopedic surgery has been consulted. Pt last took her Pradaxa last night. 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 DS: Diagnosis - Discharge Diagnosis (1) Hip fracture, left Status: Acute (2) Atrial fibrillation Status: Acute (3) GERD (gastroesophageal reflux disease) Status: Acute DS: Medications - Discharge Medications Prescriptions: metoprolol tartrate 25 mg PO BID 30 Days #60 tab DS: Summary Hospital Course: Left hip fracture - Pt is a 77 y/o with atrial fibrillation on chronic anticoagulation with Pradaxa and GERD - She was admitted to [facility] on 02/25/18 after a mechanical fall at home and was found to have sustained a left hip fracture - Appreciate Orthopedic Surgery consult - Pt s/p left hip trochanteric nailing on 02/25/[address] Coreas - Pain control PRN - Pradaxa resumed on 02/26 - Repeat labs on 02/26 noted a decrease in her Hgb down to 7.2 and Hct 22.1 - Pt was transfused with 1 units PRBCs with repeat labs on 02/26 with Hgb 8.3 - Pt had increased pain in the right knee and ankle on 02/27 overnight and went into A. fib RVR and transferred to [facility]. - Right Ankle X-Ray (02/28/18) --> Chronic changes and no definite fracture for technique. - Right Knee X-Ray (02/28/18) --> Chondrocalcinosis and possibility of CPPD should be entertained. Osteoarthritis and moderate joint effusion. 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 No sonographic evidence for right lower extremity DVT. - We will give a few doses of Solu-Medrol 40mg Q6H x 3 doses to see if this helps with some of the right knee and ankle pain. - Repeat labs on 02/27 with stable Hgb. - Supportive care - IS - PT daily - She lives alone and will likely benefit from SNF placement for rehab at the end of this hospitalization A. fib with RVR - She was moved to [facility] overnight due to A. fib RVR with HR into the 140's - Pt was given IV Cardizem, Metoprolol PO and IV, and a dose of Dig IV and was started on Cardizem gtt. - Dig level 0.7 on 02/28 - Pt has converted to NSR and Cardizem gtt has been stopped. - Cont. Metoprolol 25mg po BID - Pt is on Pradaxa 75 mg BID - Monitor on telemetry GERD - PPI, pt to have her friend bring in her Dexilant as the Protonix isn't helping with her reflux ANEMIA - hgb 6.8 this AM will transfuse 2 units PRBCs now - recheck CBC this AM revealed hgb 8.8 - Time Spent with Patient Total time spent providing and/or coordinating discharge services: - Quality: VTE Deep Vein Thrombosis/Pulmonary Embolism Present on Admission: No Exam Vital signs: Vital Signs 03/01/18 15:00 03/01/18 16:00 03/01/18 20:00 Temperature 98 F 98.1 F Pulse Rate 69 74 Respiratory Rate 16 16 16 Blood Pressure 178/64 H 140/85 Pulse Oximetry 97 95 03/01/18 21:19 03/01/18 21:51 03/01/18 23:08 Temperature 98 F 98.3 F Pulse Rate 80 75 82 Respiratory Rate 16 20 Blood Pressure 139/65 157/82 H Pulse Oximetry 98 97 03/01/18 23:30 03/02/18 00:55 03/02/18 02:09 Temperature 98.3 F 98 F Pulse Rate 73 74 Respiratory Rate 18 18 20 Blood Pressure 157/77 H 150/77 H Pulse Oximetry 94 L 97 03/02/18 02:12 03/02/18 02:30 03/02/18 02:42 Temperature 98 F Pulse Rate 73 Respiratory Rate 20 20 18 Blood Pressure 150/73 H Pulse Oximetry 95 03/02/18 03:00 03/02/18 04:18 03/02/18 06:17 Temperature 98.0 F Pulse Rate 60 70 Respiratory Rate 18 16 Blood Pressure 130/70 Pulse Oximetry 95 03/02/18 08:00 03/02/18 12:00 Temperature 98.0 F 98.1 F Pulse Rate 80 69 Respiratory Rate 24 22 Blood Pressure 135/88 159/71 H Pulse Oximetry 97 96 Intake & Output 03/01/18 03/02/18 03/02/18 18:59 06:59 18:59 Intake Total 480 / 480 1330 / 1330 Output Total 350 / 350 Balance 480 / 480 980 / 980 Intake: Oral 480 / 480 480 / 480 Other 50 / 50 Rbc As-3 Leukoreduced Unit 50 / 50 [id number] Intake (Blood Product) Amt 800 / 800 Rbc As-3 Leukoreduced Unit 400 / 400 [id number] Rbc As-3 Leukoreduced Unit 400 / 400 [id number] Output: Urine 350 / 350 Other: Other Intake Source Rbc As-3 Leukoreduced Unit Saline Solution [id number] # Voids 2 # Incontinent Voids 2 Date of Last Bowel Movement 02/28/18 02/28/18 02/28/18 Narrative: GENERAL: NAD, AAOx3 CARDIO: Regular rate and rhythm RESP: Breath sounds equal bilaterally. ABD: +BS, soft, non-tender, nondistended. EXT: Dressing on left hip c/d/i Results Procedures completed during hospitalization: s/p left hip trochanteric nailing on 02/25/[address] Coreas Labs on day of discharge: Labs from last 24 hours 03/02/18 03/01/18 02/26/18 04:58 18:30 13:30 WBC 10.2 RBC 3.23 L Hgb 8.8 L D Hct 26.3 L MCV 81.3 MCH 27.2 MCHC 33.4 RDW 17.5 H Plt Count 368 MPV 7.7 Neut % (Auto) 85.5 H Lymph % (Auto) 4.5 L Brule % (Auto) 9.9 H Eos % (Auto) 0.0 Baso % (Auto) 0.1 Neut # (Auto) 8.7 H Lymph # (Auto) 0.5 L Brule # (Auto) 1.0 H Eos # (Auto) 0.0 Baso # (Auto) 0.0 WBC Differential . Differential Comment Auto diff final Blood Type O Positive Blood Type Recheck Not needed Antibody Screen Negative MTS Gel Crossmatch See Detail See Detail - Impressions ITS Impressions Hip X-Ray 02/25/18 00:00 CONCLUSION: Postsurgical changes as above. Femur X-Ray 02/25/18 02:33 CONCLUSION: Left hip fracture Pelvis X-Ray 02/25/18 02:33 CONCLUSION: Left hip fracture Chest X-Ray 02/25/18 02:34 CONCLUSION: No acute disease Ankle X-Ray 02/28/18 00:00 CONCLUSION: Chronic changes and no definite fracture for technique. Knee X-Ray 02/28/18 00:00 CONCLUSION: Chondrocalcinosis and possibility of CPPD should be entertained. Osteoarthritis and moderate joint effusion. Venous Doppler Study 02/28/18 06:30 CONCLUSION: 1. 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 2. No sonographic evidence for right lower extremity DVT. <Des Esteves - Last Filed: 03/07/18 00:13> Date of admission: 02/25/18 05:55 Primary care physician: Fabián Maravilla DS: Diagnosis - Discharge Diagnosis (1) Hip fracture, left Status: Acute (2) Atrial fibrillation Status: Acute (3) GERD (gastroesophageal reflux disease) Status: Acute DS: Summary Hospital Course: Patient examined. Assessment and plan formulated with Irasema Zamora PA-C. I agree with the above. - Time Spent with Patient Total time spent providing and/or coordinating discharge services: Results - Impressions ITS Impressions Hip X-Ray 02/25/18 00:00 CONCLUSION: Postsurgical changes as above. Femur X-Ray 02/25/18 02:33 CONCLUSION: Left hip fracture Pelvis X-Ray 02/25/18 02:33 CONCLUSION: Left hip fracture Chest X-Ray 02/25/18 02:34 CONCLUSION: No acute disease Ankle X-Ray 02/28/18 00:00 CONCLUSION: Chronic changes and no definite fracture for technique. Knee X-Ray 02/28/18 00:00 CONCLUSION: Chondrocalcinosis and possibility of CPPD should be entertained. Osteoarthritis and moderate joint effusion. Venous Doppler Study 02/28/18 06:30 CONCLUSION: 1. 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 2. No sonographic evidence for right lower extremity DVT. Discharge Plan - Discharge Order Discharge Orders: Discharge Order (Routine); Ordered 03/02/18 Ordered By: Irasema Zamora - Discharge Details Anticipated Discharge Date: 03/02/18 - Physicians Team Primary Care Provider: Fabián Maravilla Attending Provider: Edward Armando Other Providers: Vinicius Coreas MD
== END 2018-03-02 18:30 ==
LOC: NEPE 02:26 → NEDA 05:55 → N06 14:12 → N03 02-28 05:21
PROVIDERS: ADMIT Hospitalist; ATTEND Hospitalist